=== PATIENT | female | born 1945 | race Caucasian/White ===

== ENCOUNTER 2018-04-13 15:08 | Inpatient (IN) | payer MEDICARE, BC ==
[~2018-04-13] VITALS: Ht 165.1 cm; Wt 67.4 kg
[2018-04-13 15:22] VITALS: BP 135/59; PULSE 100; RESP 17; TEMP 98.1; O2SAT 97
[2018-04-13 16:28] LABS: AMORPHOUS SEDIMENT, URINE RARE; BACTERIA, URINE MANY /hpf; BILIRUBIN, URINE NEG (NEG); BLOOD, URINE NEG (NEG); GLUCOSE,URINE NEG (NEG); HYALINE CAST, URINE 23 /lpf (RARE); KETONE, URINE TRACE mg/dL (NEG); MUCUS URINE FEW /lpf (OCC); NITRITE,URINE POS (NEG); PH, URINE 5.5 (5.0-8.5); URINE COLOR YELLOW (YELLW/STRAW); URINE LEUKOCYTE ESTERASE MOD (NEG)
[2018-04-13] MEDS ORDERED: INSU1INJ14 SQ (16:43)
[2018-04-13] MEDS ORDERED: TRIA37.5 (16:43)
[2018-04-13] MEDS ORDERED: IBUP200C PO (16:43)
[2018-04-13] MEDS ORDERED: GLIP5TAB8 PO (16:43)
[2018-04-13] MEDS ORDERED: ASPI81CH6 CHEW (16:43)
[2018-04-13] MEDS ORDERED: SYNT25TA PO (16:43)
[2018-04-13] MEDS ORDERED: PIPERACIL-TAZO 4.5 GM PREMIX 100 ML IV STA (17:17)
[2018-04-13] MEDS ORDERED: VANCOMYCIN INJ 1,000 MG in SODIUM CHLOR 0.9% 250 ML INJ 250 ML IV STA (17:17)
[2018-04-13 18:01] LABS: AUTOMATED NEUTROPHIL # 9.3 TH/MM3 (1.8-7.7); BASOPHIL # 0.1 TH/MM3 (0-0.2); BASOPHIL % 0.4 % (0.0-2.0); EOSINOPHIL # 0.4 TH/MM3 (0-0.4); EOSINOPHIL % 3.2 % (0.0-4.0); HEMATOCRIT 37.9 % (35.0-46.0); HEMOGLOBIN 12.8 GM/DL (11.6-15.3); LYMPH % 21.7 % (9.0-44.0); MEAN CORPUSCULAR HEMOGLOBIN 29.7 PG (27.0-34.0); MEAN CORPUSCULAR HGB CONC 33.8 % (32.0-36.0); MEAN PLATELET VOLUME 7.3 FL (7.0-11.0); MONO % 6.4 % (0.0-8.0); MONOCYTE # 0.9 TH/MM3 (0-0.9); NEUT % 68.3 % (16.0-70.0); PLATELET COUNT 443 TH/MM3 (150-450); RED BLOOD COUNT 4.31 MIL/MM3 (4.00-5.30); RED CELL DISTRIBUTION WIDTH 13.2 % (11.6-17.2); WHITE BLOOD COUNT 13.6 TH/MM3 (4.0-11.0)
[2018-04-13 18:24] LABS: ALBUMIN 3.4 GM/DL (3.4-5.0); ALT (GPT) 19 U/L (10-53); AST (GOT) 12 U/L (15-37); BICARBONATE 21.8 MEQ/L (21.0-32.0); BLOOD UREA NITROGEN 30 MG/DL (7-18); CALCIUM 9.1 MG/DL (8.5-10.1); CHLORIDE 100 MEQ/L (98-107); CREATININE 1.04 MG/DL (0.50-1.00); GLOMERULAR FILTRATION RATE 52 ML/MIN (>89); GLUCOSE,RANDOM 138 MG/DL (74-106); SODIUM (NA) 133 MEQ/L (136-145)
[2018-04-13 18:26] LABS: ALKALINE PHOSPHATASE 78 U/L (45-117); TOTAL BILIRUBIN ADULT 0.3 MG/DL (0.2-1.0); TOTAL PROTEIN 7.9 GM/DL (6.4-8.2)
--- NOTE | 2018-04-13 18:44 | PD ---
HPI Chief Complaint: Skin Problem Time Seen by Provider: 17:17 Travel History International Travel<30 days: No Contact w/Intl Traveler<30days: No Traveled to known affect area: No History of Present Illness HPI 72-year-old female patient with history of diabetes, presents to the ER today sent in by podiatry because she has draining ulcers on her right lower leg as well as cellulitis of both legs. She apparently has had worsening despite treatment and they state that they suspect that she has peripheral vascular disease as well. They have sent her in to be admitted with podiatry consult and to get Zosyn and vancomycin. In addition, they are suggesting that she will need ABIs and CTA for further evaluation as well as vascular consult. Patient states she has not been feeling well, pain in both legs, feeling more tired and having subjective fevers. Modifying Factors: None Associated Signs & Symptoms: Bilateral leg cellulitis, draining wounds on the right leg Risk Factors: Diabetic PFSH Past Medical History High Cholesterol: Yes Diabetes: Yes Patient Takes Glucophage: No Hypertension: Yes Thyroid Disease: Yes Tetanus Vaccination: Unknown ?: Not Ectopic : Yes Past Surgical History Tonsillectomy: Yes Other Surgery: Yes Social History Alcohol Use: No Tobacco Use: Yes Substance Use: No Allergies-Medications (Allergen,Severity, Reaction): Coded Allergies: Sulfa (Sulfonamide Antibiotics) (Verified Allergy, Severe, GI, 04/13/18) iodine (Verified Allergy, Severe, Anaphylaxis, 04/13/18) metformin (Verified Allergy, Severe, GI, 04/13/18) linagliptin (Verified Allergy, Intermediate, 04/13/18) Reported Meds & Prescriptions Reported Meds & Active Scripts Active Reported Triamterene-Hydrochlorothiazide 37.5-25 Mg Tab 1 Tab DAILY Ibuprofen 200 Mg Cap 200 Mg PO Q6H PRN Tresiba Flextouch Pen Inj (Insulin Degludec Inj) 300 unit/3 ML Pen 15 Units SQ HS Aspirin Low Dose (Aspirin) 81 Mg Chew 162 Mg CHEW DAILY Glipizide 5 Mg Tab 5 Mg PO BIDAC Take 30 minutes before a meal Synthroid (Levothyroxine Sodium) 25 Mcg Tab 25 Mcg PO DAILY Review of Systems Except as stated in HPI: all other systems reviewed are Neg Physical Exam Narrative GENERAL: Well-developed elderly female patient currently in moderate distress. SKIN: Focused skin assessment warm/dry. Patient has an erythematous rash with scaling and scabbing of the anterior chest wall as well as bilateral upper extremities and also on the lower extremities bilaterally, tender to palpation. There are 2 2 cm wounds in the medial calf and right lateral calf which are both draining pus. Very palpable pulses bilaterally. HEAD: Atraumatic. Normocephalic. EYES: Pupils equal and round. No scleral icterus. No injection or drainage. ENT: No nasal bleeding or discharge. Mucous membranes pink and moist. NECK: Trachea midline. No JVD. CARDIOVASCULAR: Regular rate and rhythm. No murmur appreciated. RESPIRATORY: No accessory muscle use. Clear to auscultation. Breath sounds equal bilaterally. GASTROINTESTINAL: Abdomen soft, non-tender, nondistended. Hepatic and splenic margins not palpable. MUSCULOSKELETAL: No obvious deformities. No clubbing. No cyanosis. Bilateral trace pitting edema of the legs, cool to palpation. NEUROLOGICAL: Awake and alert. No obvious cranial nerve deficits. Motor grossly within normal limits. Normal speech. PSYCHIATRIC: Appropriate mood and affect; insight and judgment normal. Data Data Last Documented VS Vital Signs Date Time Temp Pulse Resp B/P (MAP) Pulse Ox O2 Delivery O2 Flow Rate FiO2 04/13/18 15:22 98.1 100 17 135/59 (84) 97 Orders Orders Sepsis Workup Initiated (04/13/18 ) Complete Blood Count With Diff (04/13/18 15:29) Comprehensive Metabolic Panel (04/13/18 15:29) Urinalysis - C+S If Indicated (04/13/18 15:29) Lactic Acid Sepsis Protocol (04/13/18 15:29) Blood Culture (04/13/18 15:29) Iv Access Insert/Monitor (04/13/18 15:29) Oxygen Administration (04/13/18 15:29) Oximetry (04/13/18 15:29) Blood Glucose (04/13/18 15:29) Urine Culture (04/13/18 16:00) Piperacil-Tazo 4.5 Gm Premix (Zosyn 4.5 (04/13/18 17:17) Vancomycin Inj (Vancomycin Inj) (04/13/18 17:17) Arterial Segmt Dopp Ltd Neisha (04/13/18 ) Admit Order (Ed Use Only) (04/13/18 19:12) Labs Laboratory Tests Test 04/13/18 16:00 04/13/18 17:43 Urine Color YELLOW Urine Turbidity HAZY Urine pH 5.5 Urine Specific [place] 1.024 Urine Protein TRACE mg/dL Urine Glucose (UA) NEG mg/dL Urine Ketones TRACE mg/dL Urine Occult Blood NEG Urine Nitrite POS Urine Bilirubin NEG Urine Urobilinogen 2.0 MG/DL Urine Leukocyte Esterase MOD Urine RBC 3 /hpf Urine WBC 23 /hpf Urine Amorphous Sediment RARE Urine Bacteria MANY /hpf Urine Hyaline Casts 23 /lpf Urine Mucus FEW /lpf Microscopic Urinalysis Comment CULTURE INDICATED White Blood Count 13.6 TH/MM3 Red Blood Count 4.31 MIL/MM3 Hemoglobin 12.8 GM/DL Hematocrit 37.9 % Mean Corpuscular Volume 88.0 FL Mean Corpuscular Hemoglobin 29.7 PG Mean Corpuscular Hemoglobin Concent 33.8 % Red Cell Distribution Width 13.2 % Platelet Count 443 TH/MM3 Mean Platelet Volume 7.3 FL Neutrophils (%) (Auto) 68.3 % Lymphocytes (%) (Auto) 21.7 % Monocytes (%) (Auto) 6.4 % Eosinophils (%) (Auto) 3.2 % Basophils (%) (Auto) 0.4 % Neutrophils # (Auto) 9.3 TH/MM3 Lymphocytes # (Auto) 3.0 TH/MM3 Monocytes # (Auto) 0.9 TH/MM3 Eosinophils # (Auto) 0.4 TH/MM3 Basophils # (Auto) 0.1 TH/MM3 CBC Comment DIFF FINAL Differential Comment Blood Urea Nitrogen 30 MG/DL Creatinine 1.04 MG/DL Random Glucose 138 MG/DL Total Protein 7.9 GM/DL Albumin 3.4 GM/DL Calcium Level 9.1 MG/DL Alkaline Phosphatase 78 U/L Aspartate Amino Transf (AST/SGOT) 12 U/L Alanine Aminotransferase (ALT/SGPT) 19 U/L Total Bilirubin 0.3 MG/DL Sodium Level 133 MEQ/L Potassium Level 4.4 MEQ/L Chloride Level 100 MEQ/L Carbon Dioxide Level 21.8 MEQ/L Anion Gap 11 MEQ/L Estimat Glomerular Filtration Rate 52 ML/MIN Lactic Acid Level 1.9 mmol/L [facility] Medical Decision Making Medical Screen Exam Complete: Yes Emergency Medical Condition: Yes Medical Record Reviewed: Yes Interpretation(s) Laboratory Tests Test 04/13/18 16:00 04/13/18 17:43 Urine Turbidity HAZY (CLEAR) Urine Ketones TRACE mg/dL (NEG) Urine Nitrite POS (NEG) Urine Leukocyte Esterase MOD (NEG) Urine WBC 23 /hpf (0-5) Urine Bacteria MANY /hpf (NONE) Urine Mucus FEW /lpf (OCC) White Blood Count 13.6 TH/MM3 (4.0-11.0) Neutrophils # (Auto) 9.3 TH/MM3 (1.8-7.7) Blood Urea Nitrogen 30 MG/DL (7-18) Creatinine 1.04 MG/DL (0.50-1.00) Random Glucose 138 MG/DL (74-106) Aspartate Amino Transf (AST/SGOT) 12 U/L (15-37) Sodium Level 133 MEQ/L (136-145) Estimat Glomerular Filtration Rate 52 ML/MIN (>89) Differential Diagnosis Sepsis versus cellulitis versus electrolyte abnormalities Narrative Course At this point, patient is initiated on IV antibiotics after cultures are drawn. She also has a significant UTI which the antibiotic should also cover. My plan would be to admit her as requested by podiatry with podiatry consult. She has been ordered ABIs as well. Case is discussed with Dr. Chao for admission. Diagnosis Primary Impression: Bilateral lower leg cellulitis Additional Impressions: Sepsis UTI (urinary tract infection) Admitting Information Admitting Physician Requests: it Rui Dewitt MD Apr 13, 2018 18:44
[2018-04-13 19:19] VITALS: BP 119/66; PULSE 95; RESP 16; O2SAT 98
[2018-04-13] MEDS ORDERED: NALOXONE HCL 0.4 MG/ML AMP IV PUSH PRN (21:15)
[2018-04-13] MEDS ORDERED: ACETAMINOPHEN 325 MG TAB PO PRN (21:15)
[2018-04-13] MEDS ORDERED: GLUCAGON 1 MG/ML VIAL OTHER PRN (21:15)
[2018-04-13] MEDS ORDERED: MAGNESIUM HYDROXIDE SUSP 30 ML CUP PO PRN (21:15)
[2018-04-13] MEDS ORDERED: Vancomycin Consult Pharmacy 1 EA OTHER SCH (21:15)
[2018-04-13] MEDS ORDERED: LACTULOSE SYRUP 20 GM/30 ML CUP PO PRN (21:15)
[2018-04-13] MEDS ORDERED: BISACODYL 10 MG SUPP RECTAL PRN (21:15)
[2018-04-13] MEDS ORDERED: SODIUM CHLORIDE 0.9% FLUSH 10 ML FLUSH IV FLUSH PRN (21:15)
[2018-04-13] MEDS ORDERED: DEXTROSE 50% IN WATER 50 ML VIAL(D50) IV PUSH PRN (21:15)
[2018-04-13] MEDS ORDERED: ONDANSETRON HCL 4 MG/2 ML VIAL IVP PRN (21:15)
[2018-04-13] MEDS ORDERED: SENNOSIDES 8.6 MG TAB PO PRN (21:15)
--- NOTE | 2018-04-13 21:18 | HHI.HP ---
HPI Service [facility] Primary Care Physician No Primary Care Physician Admission Diagnosis Sepsis/bilateral leg cellulitis/UTI Diagnoses: Travel History International Travel<30 Days: No Contact w/Intl Traveler <30 Da: No Traveled to Known Affected Are: No History of Present Illness 72-year-old female with past medical history significant for diabetes mellitus, hypertension, hyperlipidemia, coronary artery disease and peripheral vascular disease presents the emergency department for evaluation of bilateral lower extremity wounds. 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 The patient states she has had these bilateral lower extremity ulcerations on her shins and feet since November. She was seen in urgent care center where she was prescribed 10 days of doxycycline on 01/31/18. She reports no improvement in her symptoms despite compliance with the medication. She reports she has had subjective fevers and chills since November. The patient is a poor historian and states she has "blockages" in her bilateral lower extremities although she cannot tell me where or what testing she had done. She denies any chest pain or shortness of breath. No abdominal pain. No nausea/vomiting/diarrhea. No lateralizing signs/symptoms. Review of Systems Except as stated in HPI: all other systems reviewed are Neg Past Family Social History Past Medical History diabetes mellitus, hypertension, hyperlipidemia, coronary artery disease and peripheral vascular disease Past Surgical History Ectopic Brain aneurysm clipping Ovarian cyst removal Tonsillectomy Reported Medications Reported Meds & Active Scripts Active Reported Triamterene-Hydrochlorothiazide 37.5-25 Mg Tab 1 Tab DAILY Ibuprofen 200 Mg Cap 200 Mg PO Q6H PRN Tresiba Flextouch Pen Inj (Insulin Degludec Inj) 300 unit/3 ML Pen 15 Units SQ HS Aspirin Low Dose (Aspirin) 81 Mg Chew 162 Mg CHEW DAILY Glipizide 5 Mg Tab 5 Mg PO BIDAC Take 30 minutes before a meal Synthroid (Levothyroxine Sodium) 25 Mcg Tab 25 Mcg PO DAILY Allergies: Coded Allergies: Sulfa (Sulfonamide Antibiotics) (Verified Allergy, Severe, GI, 04/13/18) iodine (Verified Allergy, Severe, Anaphylaxis, 04/13/18) metformin (Verified Allergy, Severe, GI, 04/13/18) linagliptin (Verified Allergy, Intermediate, 04/13/18) Family History Father with diabetes mellitus. Mother with CHF. Social History Smokes 1 pack per day 60 years. Denies alcohol and illicit drugs. Physical Exam Vital Signs Vital Signs Date Time Temp Pulse Resp B/P (MAP) Pulse Ox O2 Delivery O2 Flow Rate FiO2 04/13/18 19:19 95 16 119/66 (83) 98 Room Air 04/13/18 15:22 98.1 100 17 135/59 (84) 97 Physical Exam GENERAL: female sitting up in bed. SKIN: Bilateral lower extremity wounds draining foul-smelling, purulent material. Lower extremities with erythema and edema. HEAD: Atraumatic. Normocephalic. No temporal or scalp tenderness. EYES: Pupils equal round and reactive. Extraocular motions intact. No scleral icterus. No injection or drainage. ENT: Nose without bleeding, purulent drainage or septal hematoma. Throat without erythema, tonsillar hypertrophy or exudate. Uvula midline. Airway patent. NECK: Trachea midline. No JVD or lymphadenopathy. Supple, nontender, no meningeal signs. CARDIOVASCULAR: Regular rate and rhythm without murmurs, gallops, or rubs. RESPIRATORY: Clear to auscultation. Breath sounds equal bilaterally. No wheezes , rales, or rhonchi. GASTROINTESTINAL: Abdomen soft, non-tender, nondistended. No hepato-splenomegaly , or palpable masses. No guarding. MUSCULOSKELETAL: Bilateral lower extremity edema. NEUROLOGICAL: Awake and alert. Cranial nerves II through XII intact. Motor and sensory grossly within normal limits. Normal speech. Laboratory Laboratory Tests Test 04/13/18 16:00 04/13/18 17:43 Urine Color YELLOW Urine Turbidity HAZY Urine pH 5.5 Urine Specific [place] 1.024 Urine Protein TRACE Urine Glucose (UA) NEG Urine Ketones TRACE Urine Occult Blood NEG Urine Nitrite POS Urine Bilirubin NEG Urine Urobilinogen 2.0 Urine Leukocyte Esterase MOD Urine RBC 3 Urine WBC 23 Urine Amorphous Sediment RARE Urine Bacteria MANY Urine Hyaline Casts 23 Urine Mucus FEW Microscopic Urinalysis Comment CULTURE INDICATED White Blood Count 13.6 Red Blood Count 4.31 Hemoglobin 12.8 Hematocrit 37.9 Mean Corpuscular Volume 88.0 Mean Corpuscular Hemoglobin 29.7 Mean Corpuscular Hemoglobin Concent 33.8 Red Cell Distribution Width 13.2 Platelet Count 443 Mean Platelet Volume 7.3 Neutrophils (%) (Auto) 68.3 Lymphocytes (%) (Auto) 21.7 Monocytes (%) (Auto) 6.4 Eosinophils (%) (Auto) 3.2 Basophils (%) (Auto) 0.4 Neutrophils # (Auto) 9.3 Lymphocytes # (Auto) 3.0 Monocytes # (Auto) 0.9 Eosinophils # (Auto) 0.4 Basophils # (Auto) 0.1 CBC Comment DIFF FINAL Differential Comment Blood Urea Nitrogen 30 Creatinine 1.04 Random Glucose 138 Total Protein 7.9 Albumin 3.4 Calcium Level 9.1 Alkaline Phosphatase 78 Aspartate Amino Transf (AST/SGOT) 12 Alanine Aminotransferase (ALT/SGPT) 19 Total Bilirubin 0.3 Sodium Level 133 Potassium Level 4.4 Chloride Level 100 Carbon Dioxide Level 21.8 Anion Gap 11 Estimat Glomerular Filtration Rate 52 Lactic Acid Level 1.9 Date/Time Source Procedure Growth Status 04/13/18 17:45 Blood Peripheral Aerobic Blood Culture Pending Received 04/13/18 17:45 Blood Peripheral Anaerobic Blood Culture Pending Received 04/13/18 16:00 Urine Random Urine Urine Culture Pending Worksheet Result Diagram: 04/13/18 1743 04/13/18 1743 Caprini VTE Risk Assessment Caprini VTE Risk Assessment: Mod/High Risk (score >= 2) Caprini Risk Assessment Model Point Value = 1 Point Value = 2 Point Value = 3 Point Value = 5 Age 41-60 Minor surgery BMI > 25 kg/m2 Swollen legs Varicose veins or History of unexplained or recurrent spontaneous Oral contraceptives or hormone replacement Sepsis (< 1 month) Serious lung disease, including pneumonia (< 1 month) Abnormal pulmonary function Acute myocardial infarction Congestive heart failure (< 1 month) History of inflammatory bowel disease Medical patient at bed rest Age 61-74 Arthroscopic surgery Major open surgery (> 45 min) Laparoscopic surgery (> 45 min) Malignancy Confined to bed (> 72 hours) Immobilizing plaster cast Central venous access Age >= 75 History of VTE Family history of VTE Factor V Leiden Prothrombin [id number] Lupus anticoagulant Anticardiolipin antibodies Elevated serum homocysteine Heparin-induced thrombocytopenia Other congenital or acquired thrombophilia Stroke (< 1 month) Elective arthroplasty Hip, pelvis, or leg fracture Acute spinal cord injury (< 1 month) Prophylaxis Regimen Total Risk Factor Score Risk Level Prophylaxis Regimen 0-1 Low Early ambulation 2 Moderate Order ONE of the following: *Sequential Compression Device (SCD) *Heparin 5000 units SQ BID 3-4 Higher Order ONE of the following medications: *Heparin 5000 units SQ TID *Enoxaparin/Lovenox 40 mg SQ daily (WT < 150 kg, CrCl > 30 mL/min) *Enoxaparin/Lovenox 30 mg SQ daily (WT < 150 kg, CrCl > 10-29 mL/min) *Enoxaparin/Lovenox 30 mg SQ BID (WT < 150 kg, CrCl > 30 mL/min) AND/OR *Sequential Compression Device (SCD) 5 or more Highest Order ONE of the following medications: *Heparin 5000 units SQ TID (Preferred with Epidurals) *Enoxaparin/Lovenox 40 mg SQ daily (WT < 150 kg, CrCl > 30 mL/min) *Enoxaparin/Lovenox 30 mg SQ daily (WT < 150 kg, CrCl > 10-29 mL/min) *Enoxaparin/Lovenox 30 mg SQ BID (WT < 150 kg, CrCl > 30 mL/min) AND *Sequential Compression Device (SCD) Assessment and Plan Assessment and Plan Assessment/plan: 1. Bilateral lower extremity wounds/cellulitis/peripheral vascular disease Vancomycin and Rejin Podiatry consulted, appreciate assistance Vascular surgery consulted, appreciate assistance ABIs pending Blood, wound cultures pending Patient would benefit from CTA with runoff however has iodine allergy 2. Diabetes mellitus Sliding-scale insulin Monitor blood glucose Holding long-acting insulin as patient n.p.o. 3. Hypertension/hyperlipidemia/hypothyroidism Continue home medications FEN N.p.o. NS at 80 cc/hour Electrolytes: Monitor and replete as needed Holding pharmacologic anticoagulation for possible operative intervention Physician Certification 2 Midnight Certification Type: Admission for Inpatient Services Order for Inpatient Services The services are ordered in accordance with Medicare regulations or non- Medicare payer requirements, as applicable. In the case of services not specified as inpatient-only, they are appropriately provided as inpatient services in accordance with the 2-midnight benchmark. Estimated LOS (days): 2 2 days is the estimated time the patient will need to remain in the hospital, assuming treatment plan goals are met and no additional complications. Post-Hospital Plan: Not yet determined Kirsten Chao MD Apr 13, 2018 21:18
[2018-04-13 21:32] VITALS: BP 118/64
[2018-04-13 22:03] VITALS: BP 102/66; PULSE 106; RESP 18; TEMP 98; O2SAT 99
[2018-04-13] MEDS: SODIUM CHLOR 0.9% 1000 ML INJ 1,000 ML IV SCH (23:36)
[2018-04-13] MEDS: PIPERACIL-TAZO 3.375 GM PREMIX 50 ML IV SCH (23:36)
[2018-04-14 01:02] VITALS: BP 92/55; PULSE 93; RESP 18; TEMP 98.5; O2SAT 96
[2018-04-14] MEDS: MORPHINE SULFATE 4 MG/ML INJ IV PUSH PRN ×3 (02:15→10:16)
[2018-04-14] MEDS ORDERED: VANCOMYCIN INJ 1,000 MG in SODIUM CHLOR 0.9% 250 ML INJ 250 ML IV SCH (05:00)
[2018-04-14 05:14] VITALS: BP 132/80; PULSE 90; RESP 18; TEMP 97.6; O2SAT 99
[2018-04-14] MEDS: PIPERACIL-TAZO 3.375 GM PREMIX 50 ML IV SCH ×3 (05:40→17:32)
[2018-04-14] MEDS: LEVOTHYROXINE SODIUM 25 MCG TAB PO SCH (05:40)
[2018-04-14 07:20] LABS: AUTOMATED NEUTROPHIL # 8.9 TH/MM3 (1.8-7.7); BASOPHIL # 0.1 TH/MM3 (0-0.2); BASOPHIL % 0.6 % (0.0-2.0); EOSINOPHIL # 0.2 TH/MM3 (0-0.4); HEMATOCRIT 38.9 % (35.0-46.0); LYMPH % 17.8 % (9.0-44.0); LYMPHOCYTE # 2.1 TH/MM3 (1.0-4.8); MEAN CELL VOLUME 87.8 FL (80.0-100.0); MEAN CORPUSCULAR HEMOGLOBIN 29.4 PG (27.0-34.0); MEAN CORPUSCULAR HGB CONC 33.4 % (32.0-36.0); MEAN PLATELET VOLUME 7.5 FL (7.0-11.0); MONO % 6.2 % (0.0-8.0); MONOCYTE # 0.7 TH/MM3 (0-0.9); NEUT % 73.4 % (16.0-70.0); PLATELET COUNT 432 TH/MM3 (150-450); RED BLOOD COUNT 4.43 MIL/MM3 (4.00-5.30); RED CELL DISTRIBUTION WIDTH 13.4 % (11.6-17.2); WHITE BLOOD COUNT 12.1 TH/MM3 (4.0-11.0)
[2018-04-14 07:46] LABS: BICARBONATE 21.7 MEQ/L (21.0-32.0); CALCIUM 8.8 MG/DL (8.5-10.1); CREATININE 0.97 MG/DL (0.50-1.00)
[2018-04-14 08:00] VITALS: BP 109/71; PULSE 93; RESP 18; TEMP 97.9; O2SAT 97
[2018-04-14] MEDS: INSULIN ASPART SUPPLEMENTAL SCALE SQ SCH ×4 (08:00→22:17)
[2018-04-14] MEDS: SODIUM CHLORIDE 0.9% FLUSH 10 ML FLUSH IV FLUSH SCH ×2 (09:00→23:00)
[2018-04-14] MEDS: DOCUSATE SODIUM 50 MG/SENNA 8.6 MG TAB PO SCH ×2 (09:00→22:14)
--- NOTE | 2018-04-14 09:27 | HHI.PR ---
Subjective Remarks in no acute distress. denies pain. no fever. d/w the RN. Objective Vitals Vital Signs Date Time Temp Pulse Resp B/P (MAP) Pulse Ox O2 Delivery O2 Flow Rate FiO2 04/14/18 05:14 97.6 90 18 132/80 (97) 99 04/14/18 01:02 98.5 93 18 92/55 (67) 96 04/13/18 22:03 98.0 106 18 102/66 (78) 99 04/13/18 21:32 90 16 118/64 (82) 97 04/13/18 19:19 95 16 119/66 (83) 98 Room Air 04/13/18 15:22 98.1 100 17 135/59 (84) 97 I/O 04/13/18 04/13/18 04/13/18 04/14/18 04/14/18 04/14/18 07:00 15:00 23:00 07:00 15:00 23:00 Intake Total 250 ml Output Total 1 ml Balance 250 ml -1 ml Intake IV Total 250 ml Output Urine Total 1 ml Result Diagram: 04/14/18 0653 04/14/18 0655 Objective Remarks GENERAL: This is a well-nourished, well-developed patient, in no apparent distress. CARDIOVASCULAR: Regular rate and regular rhythm without murmurs, gallops, or rubs. RESPIRATORY: Clear to auscultation. Breath sounds equal bilaterally. No wheezes , rales, or rhonchi. GASTROINTESTINAL: Abdomen soft, non-tender, nondistended. Normal, active bowel sounds MUSCULOSKELETAL: Extremities with open wound on right leg NEURO: Alert & Oriented x4 to person, place, time, situation. Moves all ext x4 Medications and IVs Inpatient Medications Acetaminophen (Tylenol) 650 mg Q4H PRN PO TEMP > 100.4; Start 04/13/18 at 21:15 Bisacodyl (Dulcolax Supp) 10 mg DAILY PRN RECTAL SEVERE CONSITIPATION/ IF NPO ; Start 04/13/18 at 21:15 Dextrose (D50w (Vial) Inj) 50 ml UNSCH PRN IV PUSH HYPOGLYCEMIA-SEE COMMENTS; Start 04/13/18 at 21:15 Glucagon (Glucagon Inj) 1 mg UNSCH PRN OTHER HYPOGLYCEMIA-SEE COMMENTS; Start 04/13/18 at 21:15 Insulin Aspart (NovoLOG SUPPLEMENTAL SCALE) 1 ACHS SLIDING SCALE SQ ; Start 04/14/18 at 08:00 Lactulose (Lactulose Liq) 30 ml DAILY PRN PO SEVERE CONSITIPATION/ IF PO; Start 04/13/18 at 21:15 Levothyroxine Sodium (Synthroid) 25 mcg DAILY@0700 PO Last administered on at 05:40; Start 04/14/18 at 07:00 Magnesium Hydroxide (Milk Of Magnesia Liq) 30 ml Q12H PRN PO Mild constipation ; Start 04/13/18 at 21:15 Morphine Sulfate (Morphine Inj) 2 mg Q3H PRN IV PUSH pain> 5 Last administered on 04/14/18at 06:37; Start 04/14/18 at 02:15 Naloxone HCl (Narcan Inj) 0.4 mg UNSCH PRN IV PUSH SEE LABEL COMMENTS; Start at 21:15 Ondansetron HCl (Zofran Inj) 4 mg Q6H PRN IVP NAUSEA OR VOMITING; Start at 21:15 Pharmacy Profile Note 0 ml @ 0 mls/hr UNSCH OTHER ; Start 04/13/18 at 21:15 Piperacillin Sod/ Tazobactam Sod 50 ml @ 100 mls/hr Q6H IV Last administered on 04/14/18at 05:40; Start 04/14/18 at 00:00 Senna/Docusate Sodium (Zunilda-Colace) 1 tab BID PO ; Start 04/14/18 at 09:00 Sennosides (Senokot) 17.2 mg Q12H PRN PO Moderate constipation; Start 04/13/18 at 21:15 Sodium Chloride (NS Flush) 2 ml BID IV FLUSH ; Start 04/14/18 at 09:00 Triamterene/HCTZ (Maxzide 37.5-25 Mg) 1 tab DAILY PO ; Start 04/14/18 at 09:00 Vancomycin HCl 1000 mg/Sodium Chloride 250 ml @ 250 mls/hr ONCE STAT IV Last administered on 04/13/18at 18:19; Start 04/13/18 at 17:17; Stop 04/13/18 at 18:16; Status DC A/P Assessment and Plan A/P 1. Bilateral lower extremity wounds/cellulitis/peripheral vascular disease Vancomycin and Zosyn Podiatry consulted, appreciate assistance Vascular surgery consulted, appreciate assistance ABIs pending Blood, wound cultures pending Patient would benefit from CTA with runoff however has iodine allergy 2. Diabetes mellitus Sliding-scale insulin Monitor blood glucose Holding long-acting insulin as patient n.p.o. 3. Hypertension/hyperlipidemia/hypothyroidism Continue home medications Discharge Planning w/u in progress. Chioma Coker MD Apr 14, 2018 09:27
[2018-04-14] MEDS: SODIUM CHLOR 0.9% 1000 ML INJ 1,000 ML IV SCH ×3 (09:33→22:03)
[2018-04-14] MEDS: TRIAMTERENE/HCTZ 37.5 MG/25 MG TAB PO SCH (10:12)
[2018-04-14] MEDS ORDERED: ACETAMINOPHEN/HYDROcodone 325 MG/5 MG TAB PO PRN (10:15)
[2018-04-14 12:00] VITALS: BP 121/58; PULSE 93; RESP 18; TEMP 98.3; O2SAT 95
--- NOTE | 2018-04-14 12:11 | RADRPT ---
EXAM DATE: 04/14/2018 12:05 PM EDT AGE/SEX: 72 years / Female INDICATIONS: Bilateral lower extremity wounds CLINICAL DATA: This is the patient's initial encounter. Patient reports that signs and symptoms have been present for 4 - 6 months and indicates a pain score of 10/10. MEDICAL/SURGICAL HISTORY: . Diabetes mellitus, hypertension, hyperlipidemia, CAD, PVD, bilatera l lower extremity wounds . Ectopic , brain aneurysm clip, ovarian cyst removal, tonsillecto my COMPARISON: No prior exams available for comparison. TECHNIQUE: Four-cuff ankle and brachial pressures were obtained. Pulse cuff waveform tracings of the ankles were recorded, and ankle-brachial indices were calculated. PRESSURES (mmHg): Brachial (arm) : RIGHT: 112, LEFT: IV SITE Ankle : RIGHT: 10, LEFT: 8 Ankle : RIGHT: 0.09, LEFT: 0.07 TBI : RIGHT: 0.00, LEFT: 0.00 PULSED CUFF WAVEFORMS: Absent waveforms bilaterally. CONCLUSION: Critical PAD bilaterally. Electronically signed by: Serg Bass MD 04/14/2018 12:09 PM EDT
[2018-04-14] MEDS: ACETAMINOPHEN/HYDROcodone 325 MG/5 MG TAB PO PRN ×2 (12:55→22:14)
[2018-04-14 16:00] VITALS: BP 158/67; PULSE 86; RESP 18; TEMP 97.7; O2SAT 96
--- NOTE | 2018-04-14 16:21 | PD.CONS ---
History of Present Illness Service Foot and ankle surgery/podiatry Consult Requested By Reason for Consult Bilateral lower extremity ulcerations Primary Care Physician No Primary Care Physician Diagnoses: History of Present Illness Podiatry consulted for this 72-year-old female with past medical history significant for diabetes, hypertension, hyperlipidemia, coronary artery disease , and peripheral vascular disease for bilateral lower extremity wounds. Patient was seen in office yesterday and was sent over for evaluation of peripheral arterial disease as well as for IV antibiotics. Patient reports she has had bilateral lower extremity ulcerations since November. She has failed oral antibiotic treatments her most recent treatment was 01/31/2018. Patient states she reports fevers and chills since November. She denies any nausea vomiting fevers or chills as of today. Review of Systems Constitutional: DENIES: Fatigue, Fever Respiratory: DENIES: Cough, Shortness of breath Cardiovascular: COMPLAINS OF: Lower Extremity Edema, DENIES: Chest pain, Palpitations Gastrointestinal: DENIES: Nausea, Vomiting Psychiatric: DENIES: Anxiety, Confusion Past Family Social History Allergies: Coded Allergies: Sulfa (Sulfonamide Antibiotics) (Verified Allergy, Severe, GI, 04/13/18) iodine (Verified Allergy, Severe, Anaphylaxis, 04/13/18) metformin (Verified Allergy, Severe, GI, 04/13/18) linagliptin (Verified Allergy, Intermediate, 04/13/18) Past Medical History As per HPI Active Ordered Medications Current Medications Medications (Trade) Dose Ordered Sig/Carrie Route Start Time Stop Time Status Last Admin Piperacillin Sod/ Tazobactam Sod 50 ml @ 100 mls/hr Q6H IV 04/14/18 00:00 04/14/18 12:50 Pharmacy Profile Note 0 ml @ 0 mls/hr UNSCH OTHER 04/13/18 21:15 Sodium Chloride 1,000 ml @ 80 mls/hr [id number] IV 04/13/18 21:03 04/13/18 23:36 (NS Flush) 2 ml UNSCH PRN IV FLUSH 04/13/18 21:15 (NS Flush) 2 ml BID IV FLUSH 04/14/18 09:00 (Tylenol) 650 mg Q4H PRN PO 04/13/18 21:15 (Zofran Inj) 4 mg Q6H PRN IVP 04/13/18 21:15 (Narcan Inj) 0.4 mg UNSCH PRN IV PUSH 04/13/18 21:15 (Zunilda-Colace) 1 tab BID PO 04/14/18 09:00 (Milk Of Magnesia Liq) 30 ml Q12H PRN PO 04/13/18 21:15 (Senokot) 17.2 mg Q12H PRN PO 04/13/18 21:15 (Dulcolax Supp) 10 mg DAILY PRN RECTAL 04/13/18 21:15 (Lactulose Liq) 30 ml DAILY PRN PO 04/13/18 21:15 (Synthroid) 25 mcg DAILY@0700 PO 04/14/18 07:00 04/14/18 05:40 (Maxzide 37.5-25 Mg) 1 tab DAILY PO 04/14/18 09:00 04/14/18 10:12 (D50w (Vial) Inj) 50 ml UNSCH PRN IV PUSH 04/13/18 21:15 (Glucagon Inj) 1 mg UNSCH PRN OTHER 04/13/18 21:15 (NovoLOG SUPPLEMENTAL SCALE) 1 ACHS SLIDING SCALE SQ 04/14/18 08:00 (Morphine Inj) 2 mg Q3H PRN IV PUSH 04/14/18 02:15 04/14/18 10:16 ([place] 5-325 Mg) 1 tab Q6H PRN PO 04/14/18 10:15 ([place] 5-325 Mg) 2 tab Q6H PRN PO 04/14/18 10:15 04/14/18 12:55 Vancomycin HCl 1000 mg/Sodium Chloride 250 ml @ 250 mls/hr Q24H IV 04/14/18 18:00 [place] [place] [facility] Info) SPECIFIC LAB TO BE DRAWN:VANCO TROUGH DATE TO BE DR... ONCE ONCE .XX 04/16/18 17:45 04/16/18 17:46 (Deltasone) 50 mg Q6H PO 04/14/18 21:00 04/15/18 09:01 (Benadryl) 50 mg ONCE ONCE PO 04/15/18 09:00 04/15/18 09:01 Physical Exam Vital Signs Vital Signs Date Time Temp Pulse Resp B/P (MAP) Pulse Ox O2 Delivery O2 Flow Rate FiO2 04/14/18 12:00 98.3 93 18 121/58 (79) 95 04/14/18 10:21 18 04/14/18 08:00 97.9 93 18 109/71 (84) 97 04/14/18 05:14 97.6 90 18 132/80 (97) 99 04/14/18 01:02 98.5 93 18 92/55 (67) 96 04/13/18 22:03 98.0 106 18 102/66 (78) 99 04/13/18 21:32 90 16 118/64 (82) 97 04/13/18 19:19 95 16 119/66 (83) 98 Room Air Physical Exam GENERAL: This is a well-nourished, well-developed patient, in no apparent distress. SKIN: Multiple excoriations noted to all limbs HEAD: Atraumatic. EYES: Pupils equal round and reactive. ENT: Airway patent. NECK: Trachea midline. RESPIRATORY: Nonlabored breathing. MUSCULOSKELETAL:. Negative Homans sign bilaterally. NEUROLOGICAL: Awake and alert. Normal speech. Lower extremity physical exam: Vascular: Dorsalis pedis nonpalpable, posterior tibial nonpalpable. Capillary refill time within normal limits to digits 5 bilateral foot. Edema present bilateral lower extremity Neuro: Gross sensation intact to bilateral lower extremity. Pinpoint sensation intact. No hyperalgesia noted to bilateral lower extremity Dermatology: Normal temperature and turgor to bilateral lower extremity. Ulcerations noted to right medial and lateral leg with fibrotic necrotic base, probing to bone, seropurulent drainage noted, associated erythema and edema. Left hallux ulceration with completely eschar, necrotic base, no drainage noted , probe to bone noted, with associated erythema and edema. Musculoskeletal: Tender to palpation to bilateral lower extremities at ulceration site Laboratory Laboratory Tests Test 04/13/18 17:43 04/14/18 06:53 04/14/18 06:55 White Blood Count 13.6 12.1 Red Blood Count 4.31 4.43 Hemoglobin 12.8 13.0 Hematocrit 37.9 38.9 Mean Corpuscular Volume 88.0 87.8 Mean Corpuscular Hemoglobin 29.7 29.4 Mean Corpuscular Hemoglobin Concent 33.8 33.4 Red Cell Distribution Width 13.2 13.4 Platelet Count 443 432 Mean Platelet Volume 7.3 7.5 Neutrophils (%) (Auto) 68.3 73.4 Lymphocytes (%) (Auto) 21.7 17.8 Monocytes (%) (Auto) 6.4 6.2 Eosinophils (%) (Auto) 3.2 2.0 Basophils (%) (Auto) 0.4 0.6 Neutrophils # (Auto) 9.3 8.9 Lymphocytes # (Auto) 3.0 2.1 Monocytes # (Auto) 0.9 0.7 Eosinophils # (Auto) 0.4 0.2 Basophils # (Auto) 0.1 0.1 CBC Comment DIFF FINAL DIFF FINAL Differential Comment Blood Urea Nitrogen 30 31 Creatinine 1.04 0.97 Random Glucose 138 171 Total Protein 7.9 Albumin 3.4 Calcium Level 9.1 8.8 Alkaline Phosphatase 78 Aspartate Amino Transf (AST/SGOT) 12 Alanine Aminotransferase (ALT/SGPT) 19 Total Bilirubin 0.3 Sodium Level 133 136 Potassium Level 4.4 3.9 Chloride Level 100 102 Carbon Dioxide Level 21.8 21.7 Anion Gap 11 12 Estimat Glomerular Filtration Rate 52 56 Lactic Acid Level 1.9 Date/Time Source Procedure Growth Status 04/13/18 17:45 Blood Peripheral Aerobic Blood Culture - Preliminary NO GROWTH IN 1 DAY Resulted 04/13/18 17:45 Blood Peripheral Anaerobic Blood Culture - Preliminary NO GROWTH IN 1 DAY Resulted 04/13/18 16:00 Urine Random Urine Urine Culture - Preliminary Gram Negative Michael Resulted Result Diagram: 04/14/18 0653 04/14/18 0655 Imaging Last Impressions Extremity Arterial Study 04/13/18 0000 Signed Impressions: CONCLUSION: Critical PAD bilaterally. Assessment and Plan Assessment and Plan 72-year-old female with bilateral lower extremity ulcerations; possible osteomyelitis to left hallux, right leg Patient examined and evaluated with all questions answered Vascular surgery on board and CTA scheduled for tomorrow Patient will need vascular intervention before anything can be done as far as debriding wounds or possible left hallux amputation CT of right leg and left foot to rule out osteomyelitis as patient is unable to obtain MRI secondary to dye allergy Will place wound care orders Continue with conservative care at this time Brittnee Osorio DPM Apr 14, 2018 16:21
[2018-04-14] MEDS: VANCOMYCIN INJ 1,000 MG in SODIUM CHLOR 0.9% 250 ML INJ 250 ML IV SCH (18:10)
[2018-04-14 20:00] VITALS: BP 95/59; PULSE 86; RESP 18; TEMP 97.4; O2SAT 94
[2018-04-14] MEDS: predniSONE 50 MG TAB PO SCH (22:15)
[2018-04-15] VITALS: BP 131/58; PULSE 86; RESP 18; TEMP 97.2; O2SAT 97
[2018-04-15] MEDS: PIPERACIL-TAZO 3.375 GM PREMIX 50 ML IV SCH ×4 (00:06→18:26)
[2018-04-15 04:00] VITALS: BP 156/80; PULSE 88; RESP 18; TEMP 97.5; O2SAT 97
[2018-04-15] MEDS: predniSONE 50 MG TAB PO SCH ×2 (05:36→09:34)
[2018-04-15] MEDS: LEVOTHYROXINE SODIUM 25 MCG TAB PO SCH (05:36)
[2018-04-15] MEDS: INSULIN ASPART SUPPLEMENTAL SCALE SQ SCH ×4 (08:00→21:35)
[2018-04-15 08:32] VITALS: BP 139/59; PULSE 84; RESP 18; TEMP 97.2; O2SAT 95
[2018-04-15] MEDS ORDERED: diphenhydrAMINE HCL 50 MG CAP PO ONE (09:00)
[2018-04-15] MEDS: SODIUM CHLORIDE 0.9% FLUSH 10 ML FLUSH IV FLUSH SCH ×2 (09:00→21:35)
[2018-04-15] MEDS: DOCUSATE SODIUM 50 MG/SENNA 8.6 MG TAB PO SCH ×2 (09:33→21:35)
[2018-04-15] MEDS: TRIAMTERENE/HCTZ 37.5 MG/25 MG TAB PO SCH (09:34)
[2018-04-15] MEDS: COLLAGENASE OINT 30 GM TUBE TOPICAL SCH (09:35)
[2018-04-15] MEDS: SODIUM CHLOR 0.9% 1000 ML INJ 1,000 ML IV SCH ×2 (09:35→23:03)
--- NOTE | 2018-04-15 09:56 | HHI.PR ---
Subjective Remarks in no acute distress. pain is controlled. no fever. d/w the RN and no acute issues over night. Objective Vitals Vital Signs Date Time Temp Pulse Resp B/P (MAP) Pulse Ox O2 Delivery O2 Flow Rate FiO2 04/15/18 08:32 97.2 84 18 139/59 (85) 95 04/15/18 04:00 97.5 88 18 156/80 (105) 97 04/15/18 00:00 97.2 86 18 131/58 (82) 97 04/14/18 20:00 97.4 86 18 95/59 (71) 94 04/14/18 16:00 97.7 86 18 158/67 (97) 96 04/14/18 12:00 98.3 93 18 121/58 (79) 95 04/14/18 10:21 18 I/O 04/14/18 04/14/18 04/14/18 04/15/18 04/15/18 04/15/18 07:00 15:00 23:00 07:00 15:00 23:00 Intake Total 1069 ml Output Total 1 ml Balance -1 ml 1069 ml Intake IV Total 1069 ml Output Urine Total 1 ml # Voids 3 2 Result Diagram: 04/14/18 0653 04/14/18 0655 Imaging Last Impressions Extremity Arterial Study 04/13/18 0000 Signed Impressions: CONCLUSION: Critical PAD bilaterally. Objective Remarks GENERAL: This is a well-nourished, well-developed patient, in no apparent distress. CARDIOVASCULAR: Regular rate and regular rhythm without murmurs, gallops, or rubs. RESPIRATORY: Clear to auscultation. Breath sounds equal bilaterally. No wheezes , rales, or rhonchi. GASTROINTESTINAL: Abdomen soft, non-tender, nondistended. Normal, active bowel sounds MUSCULOSKELETAL: Extremities with open wound on right leg NEURO: Alert & Oriented x4 to person, place, time, situation. Moves all ext x4 Medications and IVs Inpatient Medications Acetaminophen (Tylenol) 650 mg Q4H PRN PO TEMP > 100.4; Start 04/13/18 at 21:15 Acetaminophen/ Hydrocodone Bitart ([place] 5-325 Mg) 2 tab Q6H PRN PO PAIN 8-10 Last administered on 04/14/18at 22:14; Start 04/14/18 at 10:15 Bisacodyl (Dulcolax Supp) 10 mg DAILY PRN RECTAL SEVERE CONSITIPATION/ IF NPO ; Start 04/13/18 at 21:15 Collagenase (Santyl Oint) 1 applic DAILY TOPICAL Last administered on 04/15/18at 09:35; Start 04/15/18 at 09:00 Dextrose (D50w (Vial) Inj) 50 ml UNSCH PRN IV PUSH HYPOGLYCEMIA-SEE COMMENTS; Start 04/13/18 at 21:15 Diphenhydramine HCl (Benadryl) 50 mg ONCE ONCE PO Last administered on at 09:34; Start 04/15/18 at 09:00; Stop 04/15/18 at 09:01; Status DC Glucagon (Glucagon Inj) 1 mg UNSCH PRN OTHER HYPOGLYCEMIA-SEE COMMENTS; Start 04/13/18 at 21:15 Insulin Aspart (NovoLOG SUPPLEMENTAL SCALE) 1 ACHS SLIDING SCALE SQ Last administered on 04/14/18at 22:17; Start 04/14/18 at 08:00 Lactulose (Lactulose Liq) 30 ml DAILY PRN PO SEVERE CONSITIPATION/ IF PO; Start 04/13/18 at 21:15 Levothyroxine Sodium (Synthroid) 25 mcg DAILY@0700 PO Last administered on at 05:36; Start 04/14/18 at 07:00 Magnesium Hydroxide (Milk Of Magnesia Liq) 30 ml Q12H PRN PO Mild constipation ; Start 04/13/18 at 21:15 Miscellaneous Information ([facility] Ordered Lab Info) SPECIFIC LAB TO BE DRAWN:RODRIGUEZ TROUGH DATE TO BE DRIdalia.. ONCE ONCE .XX ; Start 04/16/18 at 17:45; Stop 04/16/18 at 17:46 Morphine Sulfate (Morphine Inj) 2 mg Q3H PRN IV PUSH BREAKTHROUGH PAIN Last administered on 04/14/18at 10:16; Start 04/14/18 at 02:15 Naloxone HCl (Narcan Inj) 0.4 mg UNSCH PRN IV PUSH SEE LABEL COMMENTS; Start at 21:15 Ondansetron HCl (Zofran Inj) 4 mg Q6H PRN IVP NAUSEA OR VOMITING; Start at 21:15 Pharmacy Profile Note 0 ml @ 0 mls/hr UNSCH OTHER ; Start 04/13/18 at 21:15 Piperacillin Sod/ Tazobactam Sod 50 ml @ 100 mls/hr Q6H IV Last administered on 04/15/18 05:36; Start 04/14/18 at 00:00 Prednisone (Deltasone) 50 mg Q6H PO Last administered on 04/15/18 09:34; Start 04/14/18 at 21:00; Stop 04/15/18 at 09:01; Status DC Senna/Docusate Sodium (Zunilda-Colace) 1 tab BID PO Last administered on 04/15/18 09:33; Start 04/14/18 at 09:00 Sennosides (Senokot) 17.2 mg Q12H PRN PO Moderate constipation; Start 04/13/18 at 21:15 Sodium Chloride (NS Flush) 2 ml BID IV FLUSH Last administered on 04/14/18 23: 00; Start 04/14/18 at 09:00 Triamterene/HCTZ (Maxzide 37.5-25 Mg) 1 tab DAILY PO Last administered on 09:34; Start 04/14/18 at 09:00 Vancomycin HCl 1000 mg/Sodium Chloride 250 ml @ 250 mls/hr Q24H IV Last administered on 04/14/18 18:10; Start 04/14/18 at 18:00 A/P Assessment and Plan A/P 1- sepsis due to cellulitis/ UTI continue IV antibiotics as below- 2. Bilateral lower extremity wounds/cellulitis/peripheral vascular disease Vancomycin and Zosyn Podiatry consulted; recommended conservative treatment with wound care till seen by vascular surgery. Vascular surgery consulted, appreciate assistance ABIs with critical PAD- CTA run off pending. Blood, wound cultures pending 3- UTI with e-coli- continue antibiotic- 4. Diabetes mellitus Sliding-scale insulin Monitor blood glucose 5. Hypertension/hyperlipidemia/hypothyroidism Continue home medications Discharge Planning w/u in progress. Chioma Coker MD Apr 15, 2018 09:56
[2018-04-15] MEDS ORDERED: IOHEXOL 350 MG/ML 10 ML VIAL (for RAD DIAG) IVCONTRAST ONE (11:02)
--- NOTE | 2018-04-15 12:12 | RADRPT ---
EXAM DATE: 04/15/2018 11:56 AM EDT AGE/SEX: 72 years / Female INDICATIONS: Peripheral vascular disease, ischemic legs. CLINICAL DATA: This is the patient's initial encounter. Patient reports that signs and symptoms have been present for 1 day and indicates a pain score of 8/10. MEDICAL/SURGICAL HISTORY: Hypertension. Diabetes mellitus type I. Aneurysm, intracranial. . cereb ral aneurysm surgery RADIATION DOSE: 8.89 CTDI (mGy) COMPARISON: No prior exams available for comparison. TECHNIQUE: Volumetric scanning was performed using a multi-row detector CT scanner during bolus infu andrew of 100 ml Omnipaque 350 (iohexol) nonionic water-soluble contrast as a single exam dose. The data was post processed with a variety of visualization algorithms including full volume maximum inte nsity projection, multi-planar sliding thin slab reformation, curved planar reformation, and surface rendering techniques. Using automated exposure control and adjustment of the mA and/or kV according to patient size, radiation dose was kept as low as reasonably achievable to obtain optimal diagnostic quality images. FINDINGS: AORTA: Diffuse calcified and noncalcified atheromatous plaque throughout the abdominal aorta most pro nounced within the infrarenal aspect extending through the inflow vessels. This generates an irregula r luminal contour to the infrarenal aorta. No significant aneurysmal change. The right inflow is heav shruthi diseased and diffusely small in caliber. The external iliac artery averages 2 mm in diameter. The left inflow is heavily diseased and diffusely small in caliber. The external iliac artery averages 3 mm in diameter. High-grade stenosis involving the celiac origin. The SMA is patent as are the renal arteries. RIGHT LOWER EXTREMITY: The common femoral artery shows mild calcified plaque. It measures 4 mm in di ameter. The profunda femoris is patent. SFA is chronically occluded throughout with reconstitution of the sdxvd-ebt-qzot popliteal artery that measures 3 mm in diameter. It is patent. There is a high or igin to the posterior tibial artery which occurs at the level of the knee joint. Anterior tibial ariadne ry and peroneal artery share a common trunk. Three-vessel runoff observed to the foot. LEFT LOWER EXTREMITY: The common femoral artery shows minimal calcified plaque. It measures 4 mm in d iameter. The profunda femoris is patent. The SFA is occluded throughout. There is eventual reconstitu tion of the imtlx-zya-nxfe popliteal artery. Which measures 2 mm in diameter. Calcified plaque at the level of the femoral metaphysis 30% luminal narrowing. Popliteal arteries otherwise patent. Conventi onal anatomy seen at the trifurcation level. All 3 vessels are patent. OTHER STRUCTURES: There is a 2 cm area of vague poor enhancement involving the lateral upper pole the right kidney. This is not consistent with a cyst. A few scattered colonic diverticuli without acute inflammation. CONCLUSION: 1. Significant inflow disease bilaterally as detailed above. 2. Occluded SFAs bilaterally with reconstitution of the wjnkp-tzf-ritc popliteal arteries. Three-ves ioana runoff to both feet. 3. 2 cm area of poor enhancement involving the lateral upper pole of the right kidney concerning for a mass. Consider MRI to further assess. Electronically signed by: Dev Finn MD 04/15/2018 12:10 PM EDT
[2018-04-15 12:32] VITALS: BP 124/53; PULSE 92; RESP 18; TEMP 97.9; O2SAT 95
[2018-04-15] MEDS: ACETAMINOPHEN/HYDROcodone 325 MG/5 MG TAB PO PRN ×2 (14:54→21:34)
[2018-04-15 16:08] VITALS: BP 148/64; PULSE 89; RESP 18; TEMP 97.9; O2SAT 94
[2018-04-15] MEDS: VANCOMYCIN INJ 1,000 MG in SODIUM CHLOR 0.9% 250 ML INJ 250 ML IV SCH (18:28)
[2018-04-15 20:00] VITALS: BP 132/60; PULSE 91; RESP 18; TEMP 98.2; O2SAT 91
--- NOTE | 2018-04-15 20:00 | PD.CAR.PN ---
CVT Progress Note Subjective/Hospital Course: Referral received Full consult to dilcia García Objective: Vital Signs Date Time Temp Pulse Resp B/P (MAP) Pulse Ox O2 Delivery O2 Flow Rate FiO2 04/15/18 16:08 97.9 89 18 148/64 (92) 94 04/15/18 12:32 97.9 92 18 124/53 (76) 95 04/15/18 08:32 97.2 84 18 139/59 (85) 95 04/15/18 04:00 97.5 88 18 156/80 (105) 97 04/15/18 00:00 97.2 86 18 131/58 (82) 97 Result Diagram: 04/14/18 0653 04/14/18 0655 Angie Azul MD Apr 15, 2018 20:00
[2018-04-16] VITALS: BP 129/58; PULSE 89; RESP 18; TEMP 98; O2SAT 92
[2018-04-16] MEDS: PIPERACIL-TAZO 3.375 GM PREMIX 50 ML IV SCH ×4 (00:24→16:57)
[2018-04-16] MEDS: ACETAMINOPHEN/HYDROcodone 325 MG/5 MG TAB PO PRN ×3 (03:27→16:56)
[2018-04-16 04:00] VITALS: BP 141/59; PULSE 83; RESP 18; TEMP 97.8; O2SAT 92
[2018-04-16] MEDS: LEVOTHYROXINE SODIUM 25 MCG TAB PO SCH (06:02)
[2018-04-16] MEDS: SODIUM CHLORIDE 0.9% FLUSH 10 ML FLUSH IV FLUSH SCH ×2 (07:57→21:36)
[2018-04-16] MEDS: INSULIN ASPART SUPPLEMENTAL SCALE SQ SCH ×4 (07:57→21:35)
[2018-04-16] MEDS: TRIAMTERENE/HCTZ 37.5 MG/25 MG TAB PO SCH (07:58)
[2018-04-16] MEDS: DOCUSATE SODIUM 50 MG/SENNA 8.6 MG TAB PO SCH ×2 (07:58→21:36)
[2018-04-16] MEDS: COLLAGENASE OINT 30 GM TUBE TOPICAL SCH (08:01)
[2018-04-16 08:11] LABS: CREATININE 0.91 MG/DL (0.50-1.00)
[2018-04-16 08:15] VITALS: BP 103/52; PULSE 61; RESP 16; TEMP 98.1; O2SAT 95
[2018-04-16] MEDS: SODIUM CHLOR 0.9% 1000 ML INJ 1,000 ML IV SCH (11:08)
--- NOTE | 2018-04-16 11:40 | HHI.PR ---
Subjective Remarks in no acute distress. no fever. pain is controlled. Objective Vitals Vital Signs Date Time Temp Pulse Resp B/P (MAP) Pulse Ox O2 Delivery O2 Flow Rate FiO2 04/16/18 10:07 16 04/16/18 08:15 98.1 61 16 103/52 (69) 95 04/16/18 04:00 97.8 83 18 141/59 (86) 92 04/16/18 00:00 98.0 89 18 129/58 (81) 92 04/15/18 20:00 98.2 91 18 132/60 (84) 91 04/15/18 16:08 97.9 89 18 148/64 (92) 94 04/15/18 12:32 97.9 92 18 124/53 (76) 95 I/O 04/15/18 04/15/18 04/15/18 04/16/18 04/16/18 04/16/18 07:00 15:00 23:00 07:00 15:00 23:00 Intake Total 1069 ml 50 ml Balance 1069 ml 50 ml Intake IV Total 1069 ml 50 ml # Voids 2 3 2 # Bowel Movements 1 Result Diagram: 04/14/18 0653 04/16/18 0658 Imaging Last Impressions Aorta w/Runoff CTA 04/15/18 1000 Signed Impressions: OTHER STRUCTURES: There is a 2 cm area of vague poor enhancement involving the lateral upper pole the right kidney. This is not consistent with a cyst. A few scattered colonic diverticuli without acute inflammation. CONCLUSION: 1. Significant inflow disease bilaterally as detailed above. 2. Occluded SFAs bilaterally with reconstitution of the jfpjm-aqw-muiv poplite al arteries. Three-vessel runoff to both feet. 3. 2 cm area of poor enhancement involving the lateral upper pole of the right kidney concerning for a mass. Consider MRI to further assess. Extremity Arterial Study 04/13/18 0000 Signed Impressions: CONCLUSION: Critical PAD bilaterally. Objective Remarks GENERAL: This is a well-nourished, well-developed patient, in no apparent distress. CARDIOVASCULAR: Regular rate and regular rhythm without murmurs, gallops, or rubs. RESPIRATORY: Clear to auscultation. Breath sounds equal bilaterally. No wheezes , rales, or rhonchi. GASTROINTESTINAL: Abdomen soft, non-tender, nondistended. Normal, active bowel sounds MUSCULOSKELETAL: Extremities with open wound on right leg NEURO: Alert & Oriented x4 to person, place, time, situation. Moves all ext x4 Medications and IVs Inpatient Medications Acetaminophen (Tylenol) 650 mg Q4H PRN PO TEMP > 100.4; Start 04/13/18 at 21:15 Acetaminophen/ Hydrocodone Bitart ([place] 5-325 Mg) 2 tab Q6H PRN PO PAIN 8-10 Last administered on 04/16/18at 09:24; Start 04/14/18 at 10:15 Bisacodyl (Dulcolax Supp) 10 mg DAILY PRN RECTAL SEVERE CONSITIPATION/ IF NPO ; Start 04/13/18 at 21:15 Collagenase (Santyl Oint) 1 applic DAILY TOPICAL Last administered on 04/16/18at 08:01; Start 04/15/18 at 09:00 Dextrose (D50w (Vial) Inj) 50 ml UNSCH PRN IV PUSH HYPOGLYCEMIA-SEE COMMENTS; Start 04/13/18 at 21:15 Diphenhydramine HCl (Benadryl) 50 mg ONCE ONCE PO Last administered on at 09:34; Start 04/15/18 at 09:00; Stop 04/15/18 at 09:01; Status DC Glucagon (Glucagon Inj) 1 mg UNSCH PRN OTHER HYPOGLYCEMIA-SEE COMMENTS; Start 04/13/18 at 21:15 Insulin Aspart (NovoLOG SUPPLEMENTAL SCALE) 1 ACHS SLIDING SCALE SQ Last administered on 04/16/18at 11:07; Start 04/14/18 at 08:00 Lactulose (Lactulose Liq) 30 ml DAILY PRN PO SEVERE CONSITIPATION/ IF PO; Start 04/13/18 at 21:15 Levothyroxine Sodium (Synthroid) 25 mcg DAILY@0700 PO Last administered on at 06:02; Start 04/14/18 at 07:00 Magnesium Hydroxide (Milk Of Magnesia Liq) 30 ml Q12H PRN PO Mild constipation ; Start 04/13/18 at 21:15 Miscellaneous Information ([facility] Ordered Lab Info) SPECIFIC LAB TO BE DRAWN:VANCO TROUGH DATE TO BE DRIdalia.. ONCE ONCE .XX ; Start 04/16/18 at 17:45; Stop 04/16/18 at 17:46 Morphine Sulfate (Morphine Inj) 2 mg Q3H PRN IV PUSH BREAKTHROUGH PAIN Last administered on 04/14/18at 10:16; Start 04/14/18 at 02:15 Naloxone HCl (Narcan Inj) 0.4 mg UNSCH PRN IV PUSH SEE LABEL COMMENTS; Start at 21:15 Ondansetron HCl (Zofran Inj) 4 mg Q6H PRN IVP NAUSEA OR VOMITING; Start at 21:15 Pharmacy Profile Note 0 ml @ 0 mls/hr UNSCH OTHER ; Start 04/13/18 at 21:15 Piperacillin Sod/ Tazobactam Sod 50 ml @ 100 mls/hr Q6H IV Last administered on 04/16/18at 11:07; Start 04/14/18 at 00:00 Prednisone (Deltasone) 50 mg Q6H PO Last administered on 04/15/18at 09:34; Start 04/14/18 at 21:00; Stop 04/15/18 at 09:01; Status DC Senna/Docusate Sodium (Zunilda-Colace) 1 tab BID PO Last administered on 04/15/18at 21:35; Start 04/14/18 at 09:00 Sennosides (Senokot) 17.2 mg Q12H PRN PO Moderate constipation; Start 04/13/18 at 21:15 Sodium Chloride (NS Flush) 2 ml BID IV FLUSH Last administered on 04/16/18at 07: 57; Start 04/14/18 at 09:00 Triamterene/HCTZ (Maxzide 37.5-25 Mg) 1 tab DAILY PO Last administered on at 07:58; Start 04/14/18 at 09:00 Vancomycin HCl 1000 mg/Sodium Chloride 250 ml @ 250 mls/hr Q24H IV Last administered on 04/15/18at 18:28; Start 04/14/18 at 18:00 A/P Assessment and Plan A/P 1- sepsis due to cellulitis/ UTI continue IV antibiotics as below- 2. Bilateral lower extremity wounds/cellulitis/peripheral vascular disease Vancomycin and Zosyn Podiatry consulted; recommended conservative treatment with wound care till seen by vascular surgery. Vascular surgery consulted, appreciate assistance ABIs with critical PAD- CTA run off as noted above. 3- UTI with e-coli- continue antibiotic- 4. Diabetes mellitus Sliding-scale insulin Monitor blood glucose 5. Hypertension/hyperlipidemia/hypothyroidism Continue home medications 6; questionable right kidney mass- check US kidney. DVT prophylaxis with subq Lovenox. Discharge Planning awaiting CT surgery f/u and recommendations. Chioma Coker MD Apr 16, 2018 11:40
[2018-04-16 11:45] VITALS: BP 107/62; PULSE 69; RESP 16; TEMP 98.3; O2SAT 95
[2018-04-16] MEDS: ENOXAPARIN SODIUM 40 MG/0.4 ML SYRINGE SQ SCH (14:50)
[2018-04-16 17:05] VITALS: BP 115/58; PULSE 61; RESP 16; TEMP 97.9; O2SAT 97
[2018-04-16] MEDS ORDERED: PHARMACY ORDERED LAB ONE (17:45)
--- NOTE | 2018-04-16 17:53 | RADRPT ---
EXAM DATE: 04/16/2018 5:32 PM EDT AGE/SEX: 72 years / Female INDICATIONS: Right kidney mass. CLINICAL DATA: This is the patient's initial encounter. Patient reports that signs and symptoms have been present for 1 day and indicates a pain score of 0/10. MEDICAL/SURGICAL HISTORY: . Hypertension. Diabetes mellitus type I. Aneurysm, intracranial. . Aneurysm surgery. COMPARISON: C, CTA RUNOFF W 3D RECON, 04/15/2018. . No external comparison. CTA runoff indicated kidney mass. MEASUREMENTS: Right Kidney:__11.0 x 5.6 x 4.7 cm cm Left Kidney:__10.4 x 5.3 x 5.2 cm cm FINDINGS: Right Kidney: There is a complex partially solid and partially cystic lesion in the lateral mid to up per pole of the right kidney which correlates with the recent CT finding. This is indeterminate for n eoplasm. This would be better evaluated with MRI. Left Kidney: No significant sonographic abnormality in the left kidney. Bladder: Within normal limits given the degree of distension. CONCLUSION: 1. Complex partially solid partially cystic 1.9 cm lesion in the mid to upper pole right kidney lexi elating with recent CT abnormality. This is indeterminate for neoplasm. Recommend further evaluation with MRI. Electronically signed by: Aj White MD 04/16/2018 5:51 PM EDT
[2018-04-16] MEDS: VANCOMYCIN INJ 1,000 MG in SODIUM CHLOR 0.9% 250 ML INJ 250 ML IV SCH (18:00)
--- NOTE | 2018-04-16 18:02 | MB ---
cc: Angie Azul MD, Slobodan MD DATE: 04/16/2018 REASON FOR CONSULTATION: Ischemia of both legs and ulcers of both feet. HISTORY OF PRESENT ILLNESS: This 72-year-old lady presents to the emergency room with ulcerations and wounds of both legs over the shins and over the dorsi side of the feet. The patient apparently has had these since November, has been treated on an outpatient basis and now has come to the hospital. She is under care of medicine and podiatry and I am asked to evaluate the patient for any vascular implications. PAST MEDICAL HISTORY: Diabetes mellitus, hypertension, hyperlipidemia, coronary artery disease and peripheral vascular disease. PAST SURGICAL HISTORY: Brain aneurysm clipping, ectopic , ovarian cyst removal, tonsillectomy. MEDICATIONS: 1. Tarceva 2. Aspirin, 3. Glipizide. 4. Synthroid. 5. Ibuprofen. 6. Hydrochlorothiazide. ALLERGIES: THE PATIENT IS ALLERGIC TO SULFA AND IODINE WELL METFORMIN. SOCIAL HISTORY: The patient smokes about 1 pack a day for about 60 years, since the age of 12 and continues to do so. PHYSICAL EXAMINATION: GENERAL: Reveals a 72-year-old female. HEENT: Normocephalic. No trauma to the head. Pupils equal, reactive. Extraocular muscles intact. NECK: Bilateral carotid pulses. No bruits. CHEST: Clear. Bilateral breath sounds decreased over both lungs mc consistent with moderate COPD. HEART: Regular rhythm. ABDOMEN: Soft. No rebound, no guarding, no masses. EXTREMITIES: I do not feel femoral, popliteal, dorsalis pedis or posterior tibial pulses in either leg. On bedside Doppler, I am getting posterior tibial and dorsalis pedis bilateral, very weak and very weak popliteal pulse. Femoral pulses I cannot detect no matter what. NEUROLOGIC: The patient is grossly intact. Assessment of feet reveals this patient has ulcerated, foul smelling wounds of bilateral lower extremities in pretibial area and then dorsum of the feet. IMPRESSION AND RECOMMENDATIONS: I reviewed laboratory and diagnostic procedures. This lady indeed has vascular occlusive changes with small vessel disease of both legs and, as such, resulting in necrotic areas of the skin in a specific vasotome. CTA reveals very diminutive size vessels in the inflow area including external iliacs that measure about 2 mm and then occlusion of both superficial femoral venous arteries with reconstitution of above popliteal that is about 2-3 mm in size. Based on this, this patient is not a candidate for any type of surgery or any type of reconstruction. I thank you much for referral. MD THONY Navarro/ , 05:37 PM , 06:01 PM
[2018-04-16] MEDS: MORPHINE SULFATE 4 MG/ML INJ IV PUSH PRN ×2 (18:04→21:37)
[2018-04-16 20:00] VITALS: BP 129/67; PULSE 103; RESP 18; TEMP 97.5; O2SAT 98
[2018-04-17] VITALS: BP 153/67; PULSE 81; RESP 18; TEMP 97.3; O2SAT 96
[2018-04-17] MEDS: PIPERACIL-TAZO 3.375 GM PREMIX 50 ML IV SCH ×5 (00:27→23:24)
[2018-04-17] MEDS: ACETAMINOPHEN/HYDROcodone 325 MG/5 MG TAB PO PRN ×4 (00:27→20:52)
[2018-04-17 04:00] VITALS: BP 138/65; PULSE 80; RESP 18; TEMP 97.4; O2SAT 96
[2018-04-17] MEDS: SODIUM CHLOR 0.9% 1000 ML INJ 1,000 ML IV SCH ×2 (04:10→20:50)
[2018-04-17] MEDS: LEVOTHYROXINE SODIUM 25 MCG TAB PO SCH (06:20)
[2018-04-17 08:58] VITALS: BP 151/68; PULSE 91; RESP 20; TEMP 97.4; O2SAT 99
[2018-04-17] MEDS: DOCUSATE SODIUM 50 MG/SENNA 8.6 MG TAB PO SCH ×2 (09:17→20:53)
[2018-04-17] MEDS: TRIAMTERENE/HCTZ 37.5 MG/25 MG TAB PO SCH (09:17)
[2018-04-17] MEDS: SODIUM CHLORIDE 0.9% FLUSH 10 ML FLUSH IV FLUSH SCH ×2 (09:18→20:52)
[2018-04-17] MEDS: MORPHINE SULFATE 4 MG/ML INJ IV PUSH PRN ×3 (09:18→23:24)
[2018-04-17] MEDS: INSULIN ASPART SUPPLEMENTAL SCALE SQ SCH ×4 (09:19→21:08)
[2018-04-17] MEDS: COLLAGENASE OINT 30 GM TUBE TOPICAL SCH (09:26)
[2018-04-17 12:03] VITALS: BP 135/62; PULSE 89; RESP 20; TEMP 98; O2SAT 98
[2018-04-17] MEDS: ENOXAPARIN SODIUM 40 MG/0.4 ML SYRINGE SQ SCH (12:45)
--- NOTE | 2018-04-17 15:59 | HHI.PR ---
Subjective Remarks Seen bedside. Resting comfortably. No concerns or complaints at this time Objective Vital Signs Date Time Temp Pulse Resp B/P (MAP) Pulse Ox O2 Delivery O2 Flow Rate FiO2 04/17/18 12:03 98.0 89 20 135/62 (86) 98 04/17/18 08:58 97.4 91 20 151/68 (95) 99 04/17/18 04:00 97.4 80 18 138/65 (89) 96 04/17/18 00:00 97.3 81 18 153/67 (95) 96 04/16/18 20:00 97.5 103 18 129/67 (87) 98 04/16/18 18:13 16 04/16/18 17:57 16 04/16/18 17:05 97.9 61 16 115/58 (77) 97 I/O 04/16/18 04/16/18 04/16/18 04/17/18 04/17/18 04/17/18 07:00 15:00 23:00 07:00 15:00 23:00 Intake Total 670 ml Balance 670 ml Intake Oral 620 ml IV Total 50 ml # Voids 2 6 # Bowel Movements 1 3 Result Diagram: 04/14/18 0653 04/16/18 0658 Imaging Last Impressions Renal Ultrasound 04/16/18 0000 Signed Impressions: CONCLUSION: 1. Complex partially solid partially cystic 1.9 cm lesion in the mid to upper pole right kidney correlating with recent CT abnormality. This is indeterminate for neoplasm. Recommend further evaluation with MRI. Aorta w/Runoff CTA 04/15/18 1000 Signed Impressions: OTHER STRUCTURES: There is a 2 cm area of vague poor enhancement involving the lateral upper pole the right kidney. This is not consistent with a cyst. A few scattered colonic diverticuli without acute inflammation. CONCLUSION: 1. Significant inflow disease bilaterally as detailed above. 2. Occluded SFAs bilaterally with reconstitution of the ewxuj-qet-pinf poplite al arteries. Three-vessel runoff to both feet. 3. 2 cm area of poor enhancement involving the lateral upper pole of the right kidney concerning for a mass. Consider MRI to further assess. Extremity Arterial Study 04/13/18 0000 Signed Impressions: CONCLUSION: Critical PAD bilaterally. Other Results Microbiology Date/Time Source Procedure Growth Status 04/13/18 17:45 Blood Peripheral Aerobic Blood Culture - Preliminary NO GROWTH IN 4 DAYS Resulted 04/13/18 17:45 Blood Peripheral Anaerobic Blood Culture - Preliminary NO GROWTH IN 4 DAYS Resulted 04/13/18 16:00 Urine Random Urine Urine Culture - Final Escherichia Coli Complete Objective Remarks Lower extremity physical exam: Vascular: Dorsalis pedis nonpalpable, posterior tibial nonpalpable. Capillary refill time within normal limits to digits 5 bilateral foot. Edema present bilateral lower extremity Neuro: Gross sensation intact to bilateral lower extremity. Pinpoint sensation intact. No hyperalgesia noted to bilateral lower extremity Dermatology: Normal temperature and turgor to bilateral lower extremity. Ulcerations noted to right medial and lateral leg with fibrotic necrotic base, probing to bone, serous drainage noted, associated erythema and edema. Left hallux ulceration with completely eschar, necrotic base, no drainage noted, probe to bone noted, with associated erythema and edema. Musculoskeletal: Tender to palpation to bilateral lower extremities at ulceration site Medications and IVs Current Medications Medications (Trade) Dose Ordered Sig/Carrie Route Start Time Stop Time Status Last Admin Piperacillin Sod/ Tazobactam Sod 50 ml @ 100 mls/hr Q6H IV 04/14/18 00:00 04/17/18 12:45 Pharmacy Profile Note 0 ml @ 0 mls/hr UNSCH OTHER 04/13/18 21:15 Sodium Chloride 1,000 ml @ 60 mls/hr [id number] IV 04/13/18 21:03 04/16/18 11:08 (NS Flush) 2 ml UNSCH PRN IV FLUSH 04/13/18 21:15 (NS Flush) 2 ml BID IV FLUSH 04/14/18 09:00 04/17/18 09:18 (Tylenol) 650 mg Q4H PRN PO 04/13/18 21:15 (Zofran Inj) 4 mg Q6H PRN IVP 04/13/18 21:15 (Narcan Inj) 0.4 mg UNSCH PRN IV PUSH 04/13/18 21:15 (Zunilda-Colace) 1 tab BID PO 04/14/18 09:00 04/16/18 21:36 (Milk Of Magnesia Liq) 30 ml Q12H PRN PO 04/13/18 21:15 (Senokot) 17.2 mg Q12H PRN PO 04/13/18 21:15 (Dulcolax Supp) 10 mg DAILY PRN RECTAL 04/13/18 21:15 (Lactulose Liq) 30 ml DAILY PRN PO 04/13/18 21:15 (Synthroid) 25 mcg DAILY@0700 PO 04/14/18 07:00 04/17/18 06:20 (Maxzide 37.5-25 Mg) 1 tab DAILY PO 04/14/18 09:00 04/17/18 09:17 (D50w (Vial) Inj) 50 ml UNSCH PRN IV PUSH 04/13/18 21:15 (Glucagon Inj) 1 mg UNSCH PRN OTHER 04/13/18 21:15 (NovoLOG SUPPLEMENTAL SCALE) 1 ACHS SLIDING SCALE SQ 04/14/18 08:00 04/17/18 12:45 (Morphine Inj) 2 mg Q3H PRN IV PUSH 04/14/18 02:15 04/17/18 09:18 ([place] 5-325 Mg) 1 tab Q6H PRN PO 04/14/18 10:15 04/15/18 06:38 ([place] 5-325 Mg) 2 tab Q6H PRN PO 04/14/18 10:15 04/17/18 12:46 (Santyl Oint) 1 applic DAILY TOPICAL 04/15/18 09:00 04/17/18 09:26 (Lovenox Inj) 40 mg Q24H SQ 04/16/18 15:00 04/17/18 12:45 Vancomycin HCl 1250 mg/Sodium Chloride 262.5 ml @ 250 mls/hr Q24H IV 04/17/18 18:00 ([facility] Ordered Lab Info) SPECIFIC LAB TO BE DRAWN:VANCO TROUGH DATE TO BE DR... ONCE ONCE .XX 04/20/18 17:45 04/20/18 17:46 Assessment and Plan Assessment and Plan 72-year-old female with bilateral lower extremity ulcerations Patient examined and evaluated with all questions answered Perivascular surgery no intervention at this time Secondary to small vessel disease below the knee no surgical intervention per podiatry expected at this time Patient will need local wound care and conservative treatment Continue with conservative care at this time Wound care nurse consult placed Brittnee Osorio DPM Apr 17, 2018 15:59
[2018-04-17 16:48] VITALS: BP 111/58; PULSE 92; RESP 20; TEMP 98.2; O2SAT 96
--- NOTE | 2018-04-17 17:32 | HHI.PR ---
Subjective Remarks The patient complains of rash in bilateral upper extremities with itching. Patient concerned about rash and scabs over neck and upper extremities. Patient is afebrile. Pain is controlled. Objective Vitals Vital Signs Date Time Temp Pulse Resp B/P (MAP) Pulse Ox O2 Delivery O2 Flow Rate FiO2 04/17/18 16:48 98.2 92 20 111/58 (75) 96 04/17/18 12:03 98.0 89 20 135/62 (86) 98 04/17/18 08:58 97.4 91 20 151/68 (95) 99 04/17/18 04:00 97.4 80 18 138/65 (89) 96 04/17/18 00:00 97.3 81 18 153/67 (95) 96 04/16/18 20:00 97.5 103 18 129/67 (87) 98 04/16/18 18:13 16 04/16/18 17:57 16 I/O 04/16/18 04/16/18 04/16/18 04/17/18 04/17/18 04/17/18 06:59 14:59 22:59 06:59 14:59 22:59 Intake Total 670 ml Balance 670 ml Intake Oral 620 ml IV Total 50 ml # Voids 2 6 # Bowel Movements 1 3 Result Diagram: 04/14/18 0653 04/16/18 0658 Imaging Last Impressions Renal Ultrasound 04/16/18 0000 Signed Impressions: CONCLUSION: 1. Complex partially solid partially cystic 1.9 cm lesion in the mid to upper pole right kidney correlating with recent CT abnormality. This is indeterminate for neoplasm. Recommend further evaluation with MRI. Aorta w/Runoff CTA 04/15/18 1000 Signed Impressions: OTHER STRUCTURES: There is a 2 cm area of vague poor enhancement involving the lateral upper pole the right kidney. This is not consistent with a cyst. A few scattered colonic diverticuli without acute inflammation. CONCLUSION: 1. Significant inflow disease bilaterally as detailed above. 2. Occluded SFAs bilaterally with reconstitution of the preuf-uih-sfei poplite al arteries. Three-vessel runoff to both feet. 3. 2 cm area of poor enhancement involving the lateral upper pole of the right kidney concerning for a mass. Consider MRI to further assess. Extremity Arterial Study 04/13/18 0000 Signed Impressions: CONCLUSION: Critical PAD bilaterally. Objective Remarks AAOx3 Clear lungs BL S1S2 RRR abdomen soft, nt, nd Bilateral lower extremity wounds draining foul-smelling, purulent material. Lower extremities with erythema and edema. Bilateral upper extremities with honey crusted lesions and mild erythema but no warmth. Neck also has some honey crusted lesions as well. A/P Problem List: (1) Sepsis ICD Code: A41.9 - Sepsis, unspecified organism Status: Acute Plan: Sepsis present on admission patient with leukocytosis, heart rate more than 90 with the source being the lower extremities. Sepsis secondary likely to cellulitis and urinary tract infection. Continue IV antibiotics -currently on IV vancomycin IV Zosyn. Sepsis clinically improving. Monitor CBC (2) UTI (urinary tract infection) ICD Code: N39.0 - Urinary tract infection, site not specified Status: Acute Plan: Continue IV antibiotics as above. Urine culture growing E. coli. (3) Bilateral lower leg cellulitis ICD Code: L03.116 - Cellulitis of left lower limb; L03.115 - Cellulitis of right lower limb Status: Acute Plan: IV antibiotics as above. Podiatry consulted, recommended conservative management with wound care and vascular surgery consultation. Vascular surgery consulted. I discussed the case with Dr. Billy. The patient has vascular occlusive changes with a small vessel disease of both legs and as such resulting in necrotic areas of the skin in a specific muscle tone. CTA however reveals very diminutive sized vessels in the inflow area based on this the patient is not a candidate of any type of surgery or any type of reconstruction. Given the distribution of rash in the upper extremities, neck and lower extremities. Vasculitis need to be taken into account differential diagnosis. I will check ROBE, hepatitis profile, CRP, sedimentation rate, complement C3 and C4, antineutrophil cytoplasmic antibodies, cryoglobulins to rule out vasculitis. Consult infectious disease, will order wound culture. (4) Diabetes ICD Code: E11.9 - Type 2 diabetes mellitus without complications Plan: Blood sugar severely elevated in the 200s range. Continue SSI with insulin NovoLog and resume home insulin. Check hemoglobin A1c and lipid profile if not previously done. (5) HTN (hypertension) ICD Code: I10 - Essential (primary) hypertension Plan: Blood pressure seems to be stable. Continue triamterene/ hydrochlorothiazide. (6) Hyperlipidemia ICD Code: E78.5 - Hyperlipidemia, unspecified Plan: Not on any medications. We will check lipid profile. If there is no contraindication will start on statin therapy in a.m. (7) Hypothyroidism ICD Code: E03.9 - Hypothyroidism, unspecified Status: Chronic Plan: Continue levothyroxine. Check TSH if not previously done. Problem Qualifiers (1) UTI (urinary tract infection): Qualified Codes: N30.00 - Acute cystitis without hematuria (2) Diabetes: Qualified Codes: E11.8 - Type 2 diabetes mellitus with unspecified complications; Z79.4 - roasterman (current) use of insulin (3) HTN (hypertension): Qualified Codes: I10 - Essential (primary) hypertension (4) Hyperlipidemia: Qualified Codes: E78.5 - Hyperlipidemia, unspecified Chandler Jackman MD Apr 17, 2018 17:32
[2018-04-17] MEDS ORDERED: diphenhydrAMINE HCL 25 MG CAP PO PRN (17:45)
[2018-04-17] MEDS ORDERED: VANCOMYCIN INJ 1,250 MG in SODIUM CHLOR 0.9% 250 ML INJ 250 ML IV SCH (18:00)
[2018-04-17 20:00] VITALS: BP 141/61; PULSE 83; RESP 18; TEMP 97.9; O2SAT 95
[2018-04-17 20:40] LABS: COMPLEMENT C4 24 MG/DL (10-40)
[2018-04-17] MEDS ORDERED: INSULIN DEGLUDEC 15 UNIT SQ SCH (21:00)
[2018-04-17] MEDS: MUPIROCIN 2% CREAM 15 GM TOPICAL SCH (21:00)
[2018-04-18] VITALS: BP 135/60; PULSE 81; RESP 18; TEMP 97.9; O2SAT 97
[2018-04-18 04:00] VITALS: BP 167/68; PULSE 85; RESP 18; TEMP 98.1; O2SAT 96
[2018-04-18] MEDS: PIPERACIL-TAZO 3.375 GM PREMIX 50 ML IV SCH ×4 (05:30→23:58)
[2018-04-18] MEDS: ACETAMINOPHEN/HYDROcodone 325 MG/5 MG TAB PO PRN ×3 (05:30→21:09)
[2018-04-18] MEDS: LEVOTHYROXINE SODIUM 25 MCG TAB PO SCH (05:30)
[2018-04-18 08:38] VITALS: BP 136/70; PULSE 86; RESP 20; TEMP 98.2; O2SAT 98
[2018-04-18] MEDS: MORPHINE SULFATE 4 MG/ML INJ IV PUSH PRN ×3 (08:40→23:58)
[2018-04-18] MEDS: TRIAMTERENE/HCTZ 37.5 MG/25 MG TAB PO SCH (08:41)
[2018-04-18] MEDS: INSULIN ASPART SUPPLEMENTAL SCALE SQ SCH ×4 (08:42→21:46)
[2018-04-18] MEDS: SODIUM CHLORIDE 0.9% FLUSH 10 ML FLUSH IV FLUSH SCH ×2 (08:42→21:09)
[2018-04-18] MEDS: DOCUSATE SODIUM 50 MG/SENNA 8.6 MG TAB PO SCH ×2 (08:42→21:00)
[2018-04-18] MEDS: MUPIROCIN 2% CREAM 15 GM TOPICAL SCH ×2 (08:42→21:10)
[2018-04-18] MEDS: COLLAGENASE OINT 30 GM TUBE TOPICAL SCH (08:43)
--- NOTE | 2018-04-18 11:14 | PD.VS.CON ---
History of Present Illness Chief Complaint: Bilateral Lower Extremity non healing wounds since November Consult Requested by: Dr. Osorio History of Present Illness 75/F with a PMH of DM, HTN, PVD, CAD, Brain aneurysm and Hyperlipidemia Pt presented to the ED c/o non healing/edematous/ weeping B LE wounds since November Pt reported she recently went to urgent care and was prescribed an antibiotic ( Doxycycline) for 10 days which did not improve her wounds Pt c/o short distance B LE claudication worse on the R LE cool to touch w/ motor intact Pt denied rest pain Pt endorsed increased episodes of Left sided Chest tightness (denied currently) (Liss Elena) Past/Family/Social History Past Medical History HTN PVD Brain Aneurysm Hyperlipidemia DM CAD Past Surgical History Tonsillectomy Brain aneurysm clipping Ectopic Ovarian cyst removal Social History 60 year smoking Hx- 1 ppd ETOH- Denied Illicit drug usage- Denied Lives with her spouse 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 (Liss Elena) Home Medications Reported Medications Triamterene-Hydrochlorothiazide (Triamterene-Hydrochlorothiazide) 37.5-25 Mg Tab , 1 TAB DAILY, #30 TAB 0 Refills 04/13/18 Ibuprofen (Ibuprofen) 200 Mg Cap, 200 MG PO Q6H Y for PAIN SCALE 1 TO 10, CAP 0 Refills 04/13/18 Insulin Degludec Inj (Tresiba Flextouch Pen Inj) 300 unit/3 ML Pen, 15 UNITS SQ HS for Blood Sugar Management, #15 ML 0 Refills 04/13/18 Aspirin (Aspirin Low Dose) 81 Mg Chew, 162 MG CHEW DAILY, TAB 0 Refills 04/13/18 Glipizide (Glipizide) 5 Mg Tab, 5 MG PO BIDAC for Blood Sugar Management, #60 TAB 0 Refills Take 30 minutes before a meal 04/13/18 Levothyroxine (Synthroid) 25 Mcg Tab, 25 MCG PO DAILY for Thyroid, #30 TAB 0 Refills 04/13/18 Coded Allergies: Sulfa (Sulfonamide Antibiotics) (Verified Allergy, Severe, GI, 04/13/18) iodine (Verified Allergy, Severe, Anaphylaxis, 04/13/18) metformin (Verified Allergy, Severe, GI, 04/13/18) linagliptin (Verified Allergy, Intermediate, 04/13/18) Review of Systems Constitutional: DENIES: Fatigue, Fever, Chills Cardiovascular: COMPLAINS OF: Lower Extremity Edema (B LE weeping ), Claudication (R>L), DENIES: Chest pain Gastrointestinal: DENIES: Abdominal pain Integumentary: DENIES: Abnormal pigmentation (B LE erythema from mid calf to feet ) (Liss Elena) Physical Exam Vitals/I&O Date Time Temp Pulse Resp B/P (MAP) Pulse Ox O2 Delivery O2 Flow Rate FiO2 04/18/18 08:38 98.2 86 20 136/70 (92) 98 04/18/18 04:00 98.1 85 18 167/68 (101) 96 04/18/18 00:00 97.9 81 18 135/60 (85) 97 04/17/18 20:00 97.9 83 18 141/61 (87) 95 04/17/18 16:48 98.2 92 20 111/58 (75) 96 04/17/18 12:03 98.0 89 20 135/62 (86) 98 04/18/18 04/18/18 04/18/18 07:00 15:00 23:00 Intake Total 360 ml Balance 360 ml Neuro: CN 2-12 intact Speech clear GCS 15 HEENT: Hannah Neck: No JVD distention Heart: RRR Lungs: CTA Abdomen: S/NT Vascular: Palpable LEFT Femoral pulse Non Palpable RIGHT Femoral Non Palpable R/L DP/PT Monophasic L DP/PT Monophasic R DP/PT (faint) LE cool w/ motor intact Extremities: LE cool w/ motor intact Weeping edematous B LE Lateral aspect of R LE with deep ulceration/yellow exudate/erythema dianna wound Medial aspect of R LE with deep ulceration/yellow exudate/erythema dianna wound R LE erythema from ankle to foot (weeping) L LE erythema from mid calf to foot (weeping) Left Great toe w/ erythema and dry necrotic ulceration (distal end) (Liss Elena) Laboratory Tests Test 04/17/18 19:05 Erythrocyte Sedimentation Rate 65 C-Reactive Protein 2.50 Thyroid Stimulating Hormone 3rd Gen 0.155 Complement C3 113 Complement C4 24 Hepatitis A IgM Antibody NONREACTIVE Hepatitis B Surface Antigen NONREACTIVE Hepatitis B Core IgM Antibody NONREACTIVE Hepatitis C IgG Antibody NONREACTIVE Date/Time Source Procedure Growth Status 04/13/18 17:45 Blood Peripheral Aerobic Blood Culture - Preliminary NO GROWTH IN 4 DAYS Resulted 04/13/18 17:45 Blood Peripheral Anaerobic Blood Culture - Preliminary NO GROWTH IN 4 DAYS Resulted 04/13/18 16:00 Urine Random Urine Urine Culture - Final Escherichia Coli Complete 04/17/18 23:42 Wound Leg Gram Stain - Final Resulted 04/17/18 23:42 Wound Leg Wound Culture Pending Resulted (Liss Elena) Assessment and Plan Assessment: (1) Bilateral lower leg cellulitis Status: Acute Plan 72/F with B LE inflow disease/ occluded SFAs bilaterally with reconstitution of the [id number]-hzp-vujc popliteal arteries Pt w/ non palpable distal pulses and worsening B LE ulcerations Plan Reviewed CTA Planning LE revascularization Consult Cardiology Liss Elena NP [facility] [phone] (Liss Elena) Plan Agree with above. Pt seen, examined. multilevel B occlusive disease. Will plan for R groin reconstruction, B LE angiogram/endovascular intervention. May require second procedure for LEFT leg. Tentatively on for WEDNESDAY 04/25 Pt notes nightly chest pain. Will ask cardiology to eval. Brando Thayer MD FACS [employer] cattle [employer] [facility] [phone] (Brando Thayer MD) Liss Elena Apr 18, 2018 11:14 Brando Thayer MD Apr 18, 2018 13:36
[2018-04-18 12:07] VITALS: BP 171/72; PULSE 56; RESP 20; TEMP 97.9; O2SAT 97
[2018-04-18] MEDS: SODIUM CHLOR 0.9% 1000 ML INJ 1,000 ML IV SCH ×2 (12:28→18:13)
[2018-04-18] MEDS: ENOXAPARIN SODIUM 40 MG/0.4 ML SYRINGE SQ SCH (12:30)
[2018-04-18 13:56] LABS: AUTOMATED NEUTROPHIL # 7.2 TH/MM3 (1.8-7.7); BASOPHIL % 0.5 % (0.0-2.0); EOSINOPHIL # 0.3 TH/MM3 (0-0.4); EOSINOPHIL % 2.9 % (0.0-4.0); HEMOGLOBIN 11.6 GM/DL (11.6-15.3); LYMPHOCYTE # 1.8 TH/MM3 (1.0-4.8); MEAN CELL VOLUME 87.5 FL (80.0-100.0); MEAN CORPUSCULAR HEMOGLOBIN 29.8 PG (27.0-34.0); MEAN PLATELET VOLUME 7.5 FL (7.0-11.0); MONO % 5.3 % (0.0-8.0); MONOCYTE # 0.5 TH/MM3 (0-0.9); NEUT % 73.3 % (16.0-70.0); PLATELET COUNT 448 TH/MM3 (150-450); RED BLOOD COUNT 3.89 MIL/MM3 (4.00-5.30); RED CELL DISTRIBUTION WIDTH 13.4 % (11.6-17.2); WHITE BLOOD COUNT 9.8 TH/MM3 (4.0-11.0)
[2018-04-18 14:10] LABS: ALBUMIN 2.9 GM/DL (3.4-5.0); AST (GOT) 22 U/L (15-37); BICARBONATE 23.5 MEQ/L (21.0-32.0); BLOOD UREA NITROGEN 10 MG/DL (7-18); CALCIUM 8.7 MG/DL (8.5-10.1); CHLORIDE 103 MEQ/L (98-107); CREATININE 0.71 MG/DL (0.50-1.00); GLOMERULAR FILTRATION RATE 81 ML/MIN (>89); GLUCOSE,RANDOM 211 MG/DL (74-106); MAGNESIUM 2.1 MG/DL (1.5-2.5); SODIUM (NA) 138 MEQ/L (136-145)
[2018-04-18 14:11] LABS: ALT (GPT) 27 U/L (10-53); PHOSPHORUS 1.8 MG/DL (2.5-4.9)
[2018-04-18 14:13] LABS: ALKALINE PHOSPHATASE 59 U/L (45-117); TOTAL BILIRUBIN ADULT 0.4 MG/DL (0.2-1.0)
[2018-04-18 16:01] VITALS: BP 104/57; PULSE 87; RESP 20; TEMP 98.5; O2SAT 98
[2018-04-18] MEDS ORDERED: POTASSIUM CHLORIDE 10 MEQ CONTROLLED RELEASE TAB PO ONE (16:30)
--- NOTE | 2018-04-18 16:39 | HHI.PR ---
Subjective Remarks Discussed case with the RN. Patient's blood sugars have been severely elevated in the 200s range. Patient states that pain is controlled. Denies any fevers or chills. Patient states that she has itching on bilateral upper extremities. Patient denied chest pain and shortness of breath to me. Objective Vitals Vital Signs Date Time Temp Pulse Resp B/P (MAP) Pulse Ox O2 Delivery O2 Flow Rate FiO2 04/18/18 16:01 98.5 87 20 104/57 (73) 98 04/18/18 12:07 97.9 56 20 171/72 (105) 97 04/18/18 08:38 98.2 86 20 136/70 (92) 98 04/18/18 04:00 98.1 85 18 167/68 (101) 96 04/18/18 00:00 97.9 81 18 135/60 (85) 97 04/17/18 20:00 97.9 83 18 141/61 (87) 95 04/17/18 16:48 98.2 92 20 111/58 (75) 96 I/O 04/17/18 04/17/18 04/17/18 04/18/18 04/18/18 04/18/18 07:00 15:00 23:00 07:00 15:00 23:00 Intake Total 670 ml 720 ml 360 ml Balance 670 ml 720 ml 360 ml Intake Oral 620 ml 720 ml 360 ml IV Total 50 ml # Voids 6 6 1 # Bowel Movements 3 3 Result Diagram: 04/18/18 1304 04/18/18 1304 Imaging Last Impressions Renal Ultrasound 04/16/18 0000 Signed Impressions: CONCLUSION: 1. Complex partially solid partially cystic 1.9 cm lesion in the mid to upper pole right kidney correlating with recent CT abnormality. This is indeterminate for neoplasm. Recommend further evaluation with MRI. Aorta w/Runoff CTA 04/15/18 1000 Signed Impressions: OTHER STRUCTURES: There is a 2 cm area of vague poor enhancement involving the lateral upper pole the right kidney. This is not consistent with a cyst. A few scattered colonic diverticuli without acute inflammation. CONCLUSION: 1. Significant inflow disease bilaterally as detailed above. 2. Occluded SFAs bilaterally with reconstitution of the gzzed-zja-okzn poplite al arteries. Three-vessel runoff to both feet. 3. 2 cm area of poor enhancement involving the lateral upper pole of the right kidney concerning for a mass. Consider MRI to further assess. Extremity Arterial Study 04/13/18 0000 Signed Impressions: CONCLUSION: Critical PAD bilaterally. Objective Remarks AAOx3 Clear lungs BL S1S2 RRR abdomen soft, nt, nd Bilateral lower extremity wounds draining foul-smelling, purulent material. Lower extremities with erythema and edema. Bilateral upper extremities with honey crusted lesions and mild erythema but no warmth. Neck also has some honey crusted lesions as well. A/P Problem List: (1) Sepsis ICD Code: A41.9 - Sepsis, unspecified organism Status: Acute Plan: Sepsis present on admission patient with leukocytosis, heart rate more than 90 with the source being the lower extremities. Sepsis secondary likely to cellulitis and urinary tract infection. Continue IV antibiotics -currently on IV vancomycin IV Zosyn. Sepsis clinically improving. Monitor CBC ID consulted -pending recommendations. (2) UTI (urinary tract infection) ICD Code: N39.0 - Urinary tract infection, site not specified Status: Acute Plan: Continue IV antibiotics as above. Urine culture growing E. coli. (3) Bilateral lower leg cellulitis ICD Code: L03.116 - Cellulitis of left lower limb; L03.115 - Cellulitis of right lower limb Status: Acute Plan: IV antibiotics as above. Podiatry consulted, recommended conservative management with wound care and vascular surgery consultation. Vascular surgery consulted. I discussed the case with Dr. Billy. The patient has vascular occlusive changes with a small vessel disease of both legs and as such resulting in necrotic areas of the skin in a specific muscle tone. CTA however reveals very diminutive sized vessels in the inflow area based on this the patient is not a candidate of any type of surgery or any type of reconstruction. Given the distribution of rash in the upper extremities, neck and lower extremities. Vasculitis need to be taken into account differential diagnosis. I will check ROBE, hepatitis profile, CRP, sedimentation rate, complement C3 and C4, antineutrophil cytoplasmic antibodies, cryoglobulins to rule out vasculitis. I will also order a Lyme disease PCR, RPR, Lyme basement debridement antibodies, serum protein electrophoresis. Consult infectious disease, will order wound culture. 04/18 sed rate was very elevated at 65 and CRP also elevated at 2.50. Hepatitis profile nonreactive, normal C3 and C4. Other tests pending. Given the elevation of the CRP and ESR and distribution of rash and given that the rash started after administration of metformin, I suspect the patient has some type of vasculitis. I will start the patient on IV Solu-Medrol. Discussed the case with Liss Elena. She states that the plan from vascular surgery point will be to consult cardiology for cardiac clearance since patient complained of nightly chest pain (4) Diabetes ICD Code: E11.9 - Type 2 diabetes mellitus without complications Plan: Blood sugar severely elevated in the 200s range. Continue SSI with insulin NovoLog and resume home insulin. Check hemoglobin A1c and lipid profile if not previously done. 04/18 patient's blood sugar still severely elevated in the 200s range. Given the patient will be started on IV steroids, I will increase the sliding scale to high dose and start the patient on insulin Levemir 10 units subcu twice daily. (5) HTN (hypertension) ICD Code: I10 - Essential (primary) hypertension Plan: Blood pressure seems to be stable. Continue triamterene/ hydrochlorothiazide. (6) Hyperlipidemia ICD Code: E78.5 - Hyperlipidemia, unspecified Plan: Not on any medications. We will check lipid profile. If there is no contraindication will start on statin therapy in a.m. (7) Hypothyroidism ICD Code: E03.9 - Hypothyroidism, unspecified Status: Chronic Plan: Continue levothyroxine. Check TSH if not previously done. 6 02/16 TSH low at 0.155 (8) CAD (coronary artery disease) ICD Code: I25.10 - Atherosclerotic heart disease of [place] coronary artery without angina pectoris Plan: Patient complaining of chest tightness at night. Neurology consulted. Case was discussed with Dr. Caleb Fraga who recommends a carotid Dopplers, EKG , chest x-ray and cardiac catheterization. Patient was also started on beta- alfredo and a nitroglycerin patch. Assessment and Plan DVT prophylaxis: Lovenox subcutaneously. Discharge Planning Continue to monitor the medical floor. 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
[2018-04-18] MEDS ORDERED: diphenhydrAMINE HCL 50 MG CAP PO SCH (16:45)
[2018-04-18] MEDS ORDERED: DIAZEPAM 5 MG TAB PO SCH (16:45)
[2018-04-18 16:49] LABS: HEMOGLOBIN A1C 8.4 % (4.3-6.0)
--- NOTE | 2018-04-18 17:05 | MB ---
cc: Caleb Fraga MD DATE: 04/18/2018 REASON FOR CONSULTATION: Preoperative clearance for vascular surgery. HISTORY OF PRESENT ILLNESS: Nallely Gonzales is a 72-year-old woman with extremely severe vascular disease. Both legs have critical reductions in blood flow. She has no pulse in the right arm or any pulse in the lower extremities. She does have a pulse in the left radial. She has multiple cardiac risk factors including hypertension, diabetes, lifelong smoking a pack a day, hyperlipidemia and known peripheral arterial disease. She has refused nuclear stress test and has never had a nuclear stress test before. She is not able to do a treadmill with her legs and so her problems have just gone on and continued. She has had chronic angina she says going back many years. It comes on particularly if she is stressed; it is more frequent in the past month. Angina sounds typical with the substernal tightness with radiation to the left arm and shoulder, lasting about 5 minutes. It occurs with any type of stress. Her physical activity is severely limited due to claudication pain in both legs. PAST MEDICAL HISTORY: Includes hypertension, diabetes, hyperlipidemia, coronary artery disease, peripheral vascular disease. PAST SURGICAL HISTORY: Includes brain aneurysm clipping in 1976, ectopic , ovarian cyst removal, tonsillectomy. MEDICATIONS: 1. She is on an aspirin. 2. Glipizide. 3. Synthroid. There is no statin prescribed. ALLERGIES: SULFA. IODINE. METFORMIN. LINAGLIPTIN. FAMILY HISTORY: Father had diabetes, Mother CHF. SOCIAL HISTORY: Smokes 1 pack a day for 60 years. She has 1 child. She is . PHYSICAL EXAMINATION: GENERAL: Reveals a well-developed, well-nourished white female, in no acute distress. VITAL SIGNS: Charted. Blood pressure is being obtained in the left arm. HEENT: Unremarkable. NECK: Shows bilateral carotid bruits. There is also bilateral subclavian bruits. CHEST: Shows diminished breath sounds bilaterally. CARDIAC: Exam shows S1 and S2. Regular rate and rhythm. There is a harsh 2/6 systolic murmur. ABDOMEN: Soft. She has got severely diminished pulses in lower extremities. She has absent right radial pulse. SKIN: Skin is notable for multiple scabbed excoriation hurtado. She says she dug into herself itching due to a medicine that gave her a rash and itching. IMAGING STUDIES: Her chest x-ray has not been performed. LABORATORY DATA: Hematocrit is 34, creatinine is 0.71, potassium is 3.4 and I do not see any potassium was given to cover that. She has not had her carotids imaged yet. IMPRESSION: Severely vasculopathic, 72-year-old woman with vascular disease in all of her vascular beds. She is in a crisis with her legs. She has significant angina. PLAN: I will plan to do a diagnostic catheterization tomorrow morning at 7:30. I am going to get a STAT echo tonight so I will have that done before her catheterization. I am also going to order carotid Dopplers STAT to get those done. I expect it is likely she is going to have multivessel disease and might need bypass surgery before her legs can be fixed. Alternatively, she might be a candidate for percutaneous intervention. Further therapy to be determined. The patient has been informed she is at high risk. MD OMAR Singh/JESS , 04:27 PM , 05:03 PM
[2018-04-18 17:23] LABS: CHOLESTEROL/ HDL RATIO 3.42 RATIO; HDL CHOLESTEROL 38.3 MG/DL (40.0-60.0)
--- NOTE | 2018-04-18 17:26 | PD.WCN.NOT ---
Wound Consult Communicated with: GALE ash Additional Information: Patient not seen on [address] [place]. Attempted to see patient at around 1724 for application of dressing as ordered by Doctor Osorio as follows Apply optifoam AG gentle to BLE weeping wounds and secure loosely with cast padding. Patient is off the floor for stat Echocardiogram. Will see patient tomorrow. Supplies were left in patient's room and with GALE ash. Layla Friend [facility] Apr 18, 2018 17:26
[2018-04-18] MEDS: methylPREDNISolone SOD SUCC 40 MG/1 ML VIAL IV PUSH SCH ×2 (18:12→23:58)
[2018-04-18] MEDS: NITROGLYCERIN 2% OINT 1 GM PACKET TOPICAL SCH ×2 (18:13→23:58)
--- NOTE | 2018-04-18 18:21 | EKG ---
Date Performed: 04/18/2018 Time Performed: 16:23:45 PTAGE: 72 years EKG: Baseline artifact present Sinus rhythm MODERATE INTRAVENTRICULAR CONDUCTION DELAY NONSPECIFIC ST & T-WAVE ABNORMALITY There is ST elevation in lead AVR. One cannot rule out an ST elevation [place] and clinical correlation is suggested. DOCTOR: Gonzalo Becerril Interpretating Date/Time 04/18/2018 18:19:34
[2018-04-18 21:00] LABS: FREE T3 3.52 PG/ML (2.18-3.98); FREE T4 1.41 NG/DL (0.76-1.46)
[2018-04-18] MEDS ORDERED: INSULIN DETEMIR 100 UNITS/ML VIAL SQ SCH (21:00)
--- NOTE | 2018-04-18 21:01 | RADRPT ---
EXAM DATE: 04/18/2018 8:30 PM EDT AGE/SEX: 72 years / Female INDICATIONS: Shortness of breath. CLINICAL DATA: This is the patient's subsequent encounter. Patient reports that signs and symptoms h ave been present for 1 day and indicates a pain score of 0/10. MEDICAL/SURGICAL HISTORY: . Hypertension. Diabetes mellitus type I. Aneurysm, intracranial. . Aneurysm surgery. COMPARISON: No prior exams available for comparison. FINDINGS: The lungs are clear without infiltrate, nodule, or mass. There is no appreciable pleural effusion for technique. Heart and mediastinum are unremarkable. CONCLUSION: No acute cardiopulmonary disease. Electronically signed by: Liane Hagan MD 04/18/2018 9:00 PM EDT
[2018-04-18] MEDS: METOPROLOL TARTRATE 25 MG TAB PO SCH (21:09)
[2018-04-18 21:10] VITALS: BP 118/87; PULSE 90; RESP 19; TEMP 97.8; O2SAT 98
--- NOTE | 2018-04-18 22:47 | RADRPT ---
EXAM DATE: 04/18/2018 10:43 PM EDT AGE/SEX: 72 years / Female INDICATIONS: Bruit. CLINICAL DATA: This is the patient's initial encounter. Patient reports that signs and symptoms have been present for 1 day and indicates a pain score of 0/10. MEDICAL/SURGICAL HISTORY: Diabetes. Hypertension. Cardiovascular disease. Hyperlipidemia. P eripheral Vascular Disease. Tonsillectomy. Brain aneurysm clipping. COMPARISON: No prior exams available for comparison. VELOCITY PARAMETERS: ICA/CCA Ratio: Right 1.11 , Left 1.84 ICA: Right 76 cm/sec, Left 159 cm/sec CCA: Right 69 cm/sec, Left 86 cm/sec ECA: Right 106 cm/sec, Left 765 cm/sec Vertebral: Right 15 cm/sec antegrade, Left 166 cm/sec antegrade FINDINGS: Antegrade flow is seen in both vertebral arteries. There is mild to moderate atherosclerotic plaquing at the origin of both ICAs worse on the left without any significant stenosis. Elevated flow velocities and ICA/CCA ratios have been found to correlate with increased degrees of vessel stenosis, calculated as percentage of diameter relative to a normal segment of distal ICA. CONCLUSION: No evidence for hemodynamically significant stenosis. Electronically signed by: Liane Hagan MD 04/18/2018 10:46 PM EDT
[2018-04-19] VITALS (12 sets, daily range): BP systolic 71–122; BP diastolic 46–82; PULSE 71–98; RESP 12–18; TEMP 97.6–98.6; O2SAT 97–99
[2018-04-19] MEDS: ACETAMINOPHEN/HYDROcodone 325 MG/5 MG TAB PO PRN ×2 (04:27→21:26)
[2018-04-19] MEDS: NITROGLYCERIN 2% OINT 1 GM PACKET TOPICAL SCH ×3 (05:05→18:41)
[2018-04-19] MEDS: methylPREDNISolone SOD SUCC 40 MG/1 ML VIAL IV PUSH SCH ×2 (05:06→14:28)
[2018-04-19] MEDS: LEVOTHYROXINE SODIUM 25 MCG TAB PO SCH (05:06)
[2018-04-19] MEDS: PIPERACIL-TAZO 3.375 GM PREMIX 50 ML IV SCH ×3 (05:13→18:00)
[2018-04-19 06:09] LABS: AUTOMATED NEUTROPHIL # 7.1 TH/MM3 (1.8-7.7); BASOPHIL % 0.1 % (0.0-2.0); HEMATOCRIT 32.7 % (35.0-46.0); HEMOGLOBIN 10.8 GM/DL (11.6-15.3); LYMPH % 13.3 % (9.0-44.0); LYMPHOCYTE # 1.1 TH/MM3 (1.0-4.8); MEAN CELL VOLUME 88.9 FL (80.0-100.0); MEAN CORPUSCULAR HEMOGLOBIN 29.4 PG (27.0-34.0); MEAN CORPUSCULAR HGB CONC 33.1 % (32.0-36.0); MEAN PLATELET VOLUME 7.2 FL (7.0-11.0); MONO % 1.2 % (0.0-8.0); MONOCYTE # 0.1 TH/MM3 (0-0.9); NEUT % 85.4 % (16.0-70.0); PLATELET COUNT 409 TH/MM3 (150-450); RED BLOOD COUNT 3.68 MIL/MM3 (4.00-5.30); RED CELL DISTRIBUTION WIDTH 13.2 % (11.6-17.2); WHITE BLOOD COUNT 8.4 TH/MM3 (4.0-11.0)
[2018-04-19] MEDS: SODIUM CHLOR 0.9% 1000 ML INJ 1,000 ML IV SCH ×3 (06:10→20:50)
[2018-04-19 06:20] LABS: CALCIUM 8.7 MG/DL (8.5-10.1); CHOLESTEROL/ HDL RATIO 2.68 RATIO; CREATININE 0.91 MG/DL (0.50-1.00); HDL CHOLESTEROL 45.4 MG/DL (40.0-60.0)
[2018-04-19] MEDS ORDERED: HEPARIN-NS/PF INJ 1,000 ML ONE (07:05)
[2018-04-19] MEDS ORDERED: NITROGLYCERIN INJ 5 ML ONE (07:06)
[2018-04-19] MEDS ORDERED: HEPARIN SODIUM - IV 10,000 UNITS/10 ML VIAL ONE (07:06)
[2018-04-19] MEDS ORDERED: VERAPAMIL HCL 5 MG/2 ML VIAL ONE (07:06)
[2018-04-19] MEDS: INSULIN ASPART SUPPLEMENTAL SCALE SQ SCH ×4 (07:12→21:00)
[2018-04-19] MEDS ORDERED: diphenhydrAMINE HCL 50 MG/ML VIAL ONE (07:31)
[2018-04-19] MEDS ORDERED: methylPREDNISolone SOD SUCC 125 MG/2 ML VIAL ONE (07:31)
[2018-04-19] MEDS ORDERED: MIDAZOLAM HCL 2 MG/2 ML VIAL ONE (07:48)
[2018-04-19] MEDS ORDERED: SODIUM CHLOR 0.9% 1000 ML INJ 1,000 ML IV SCH (08:42)
[2018-04-19] MEDS ORDERED: MISC INFORMATION XX ONE (08:45)
[2018-04-19] MEDS ORDERED: BACITRACIN OINT 0.9 GM PKT TOP ONE (08:45)
--- NOTE | 2018-04-19 08:45 | CATHPROC ---
[employer] HIS Report Study Information Study Number Admission Scheduled Start Study Start [id number] Apr 13 2018 7:13PM 04/18/2018 Apr 19 2018 6:55AM [place] Service Cardiac Catheterization Admit Source Facility Department Emergency department [facility] - Review Engineer Physician and Clinical Staff Initial Caleb Franks Border Guard Jan Lane,GALE Recorder Maria G [place],RT(R) Scrub Taisha Marquis ,RT(R) X-Ray Parisa Zhu,RT(R) Procedures Performed Procedure Location (Site) Vessel Name Angiogram LV LV Ventricle Coronary Angiograms LCA Left Coronary Coronary Angiograms RCA Right Coronary L Heart Cath LV Gram-hand inj. LV LV Ventricle Wire insertion Radial (left) Radial Art. Equipment Time Journal Entry Audit Clerk Description Size Mfg Part Number Used/Scraped TRANSDUCER, TRUWAVE [id number] 07:01 GOMEZ GARZA * Used W/STOCKCOCK *[id number] 07:01 MALLINCKRODT SYRINGE, ANGIOMAT 150ML 150ML *[id number] Used 2SUB [id number] 07:01 PaperV BLANKET,WARM AIR CCL * Used *[id number] 07:01 PaperV PACK, CCL CUSTOM * Used *[id number] 07:01 PaperV SUPPORT, ARTERIAL ADULT 71019 *[id number] Used [id number] 07:01 [employer] PACER PEN, SKIN DUAL W/ RULER * Used *[id number] 08:05 MEDTRONIC JL 3.5 DXTERITY CATHETER FR 5 Used *[id number] PIG ANG 145 DXTERITY [id number] 08:17 MEDTRONIC FR 5 Used CATHETER *[id number] BAND, RADIAL COMPRESSION TR [id number] 08:30 [employer] MEDICAL 24CM Used SHORT 24 *[id number] 07:01 [employer] MEDICAL WIRE, EXCHANGE 260CM 3MMJ 260CM Used *[id number] 07:01 NAMIC MANIFOLD, 4 PORT * Used *[id number] 07:01 [employer]COMED OMNIPAQUE, 350 MG, 100ML 100ML [id number] Used 08:05 [employer]COMED OMNIPAQUE, 350 MG, 150ML 150ML [id number] Used 08:23 NYCOMED OMNIPAQUE, 350 MG, 50ML 50ML [id number] Used 07:01 [employer]er JELCO NEEDLE 4056 *[id number] Used CATHETER, FR5 OPTITORQUE [id number] 07:50 TERInSequent MEDICAL FR 5 Used RADIAL TIG 4.0 *[id number] SHEATH, FR6 TRANSRADIAL RM*[id number] 07:01 TERCapableBits FR 6 Used SLENDER 10CM *[id number] Equipment Model, Serial, Lot Number and Expiration Data Description Model Number Serial Number Lot Number Expiration Date PIG ANG 145 DXTERITY CATHETER [id number] 12-15-2019 History: Current Medications Medication Dosage/Unit Route Frequency Last Date/Time Taken LOVENOX Insulin Beta Sharda History: Allergies Allergy Reaction Sulfa (Sulfonamide Antibiotics) GI iodine Anaphylaxis metformin GI linagliptin History: Risk Factors Family History of Hypertension Dyslipidemia Previous SD Previous Heart Failure Premature CAD Yes Yes Yes No No Prior Valve Prior PCI Prior CABG Surgery No No No Cerebrovascular Peripheral Artery Chronic Lung On Dialysis Diabetes Diabetes Therapy Disease Disease Disease No No Yes Yes Yes Insulin History: Risk Factors Selection Items Current Smoker History: Stress Tests Stress or Imaging Studies Performed No Labs Hgb (g/dl) Hct (%) WBC (l/cumm) Platelets (thousands) 11.60-17.00 35.00-51.00 4.00-11.00 150.00-450.00 10.8 32.7 8.4 409 Glucose (mg/dl) BUN (mg/dl) Creatinine (mg/dl) BUN:Creatinine (1:x) 74.00-106.00 7.00-18.00 0.50-1.30 10.00-20.00 385 14 0.9 15.6 Na (meq/l) K (meq/l) 136.00-145.00 3.50-5.10 135 4.8 CPK-MB (ng/ML) 0.50-3.60 Not Drawn Medication Medication Total Dose (Bolus/Oral) Medication Total Dosage/Unit 1% XYLOCAINE 20 mL BENADRYL 50 mg FENTANYL 50 mcg RADIAL COCKTAIL 5 mL (Bolus) SOLU-MEDROL 125 mg VERSED 2 mg Medications (Bolus/Oral) Medication Time Given Dosage/Unit Administered By Reason BENADRYL 04/19/2018 7:34:[address] 50 mg BENADRYL given in lab by Jna Lane, RN via Peripheral IV. SOLU-MEDROL 04/19/2018 7:35:[address] 125 mg SOLU-MEDROL given in lab by Jan Lane RN via Peripheral IV. 1% XYLOCAINE 04/19/2018 7:47:51 AM 20 mL Caleb Fraga 20 mL 1% XYLOCAINE given in lab by Caleb Fraga in Left Radial via Subcutaneous. VERSED 04/19/2018 7:48:[address] 1 mg VERSED given in lab by Jan Lane RN via Peripheral IV. Ntg 200mcg Verapamil 2.5mg Heparin RADIAL COCKTAIL 04/19/2018 7:54:03 AM 5 mL (Bolus) Caleb Fraga 2500U 5 mL (Bolus) RADIAL COCKTAIL given in lab by Caleb Fraga via Radial. Using [Solution Name]. Reason: Ntg 200mcg Verapamil 2.5mg Heparin 2500U. FENTANYL 04/19/2018 7:56:[address] 50 mcg FENTANYL given in lab by Jan Lane RN in Left Arm via Peripheral IV. Ordered by Desirae Fraga. VERSED 04/19/2018 7:58:[address] 1 mg VERSED given in lab by Jan Lane RN in Left Arm via Peripheral IV. Ordered by Caleb Fraga . Medication (Drip) Medication Time Given Dosage/Unit Concentration/Unit Diluent (ml) Solution IV Solutions 04/19/2018 7:21:11 AM 0 mL (IV) NaCl .9 IV Solutions given in lab by Jan Lane RN in Left Arm via Peripheral IV. Pump/Drip Flow = 20 ml/ hr using NaCl .9. Initial Case Assessment Cardiovascular HR Rhythm NIBP Chest Pain 85 reg 98/75 0 Edema Present Skin color Skin None Normal Warm Circulatory - Left Pulses Circulatory - Lower Extremities Color Lower Right Color Lower Left Normal Normal Neurological State Oriented to time-place- Alert Moves all extremities person Respiration - General Respiration Rate SpO2 (%) O2 (lpm) (B/min) 13 99 0 Chronological Log Time Study Chronological Log 7:17:30 Patient arrived via Bed. 7:17:50 Patient Name, D.O.B, / Armband Verified By R.N. 7:20:23 Consent signed by the physician and the patient and verified by the Review Engineer staff. 7:20:25 Pre-op and post- op instructions given; patient acknowledges understanding of instructions. 7:20:26 Verbal Stimulation=2 Physical Stimulation=2 Airway=2 Respiration=2 TOTAL=8. (0=absent, 1=crowley ited, 2=present) 7:21:00 Allens test performed on the left radial and ulnar artery. 7:21:05 Patient has been NPO for More than 6Hrs. 7:21:06 Skin Breakdown-bilat LE wounds 7:21:07 Sonya Prominences Protected 7:21:11 A # 20 IV was noted in the Upper Arm (left). Grade = 0 7:21:11 IV Solutions given in lab by Jan Lane, RN in Left Arm via Peripheral IV. Pump/Drip Flow = 20 ml/hr using NaCl .9. 7:21:13 History and physical on the chart or being dictated. 7:24:45 Reference ECG taken Vitals capture started with the following parameters, Patient=Adult, Interval=5 min, Initial Pre pphre=209 mmHg, 7:24:48 Deflation Rate=5 mmHg, Cuff placed on Left Arm 7:25:24 HR=85 bpm, IZMM=897/66 mmhg, SpO2=96.0 %, Resp=9 B/min 7:30:15 HR=85 bpm, NIBP=98/75 mmhg, SpO2=98 %, Resp=26 B/min, Pain=0, [place]=10, [place]=2 7:31:12 pt complaining of back pain....cant keep legs straight Assessment: Initial Case, HR=85 BPM, Rhythm=reg, NIBP=98/75 mmhg, Chest Pain=0, Edema=None, [place] r=Normal, Skin = Warm Left Pulses: Radial=2 7:31:23 Lower Right Extremities: Color=Normal Lower Left Extremities: Color=Normal Neurological: State=Alert, Ox3, TELLEZ Respiration: Resp=13 B/min, SpO2=99 %, O2=0 lpm 7:32:49 MD paged 7:32:54 Left Radial prepped with 2% chlorhexidine, and draped after a 3 min. waiting time. 7:34:26 50 mg BENADRYL given in lab by Jan Lane, RN via Peripheral IV. 7:35:20 HR=84 bpm, QLPO=682/59 mmhg, SpO2=97.0 %, Resp=12 B/min, Pain=0, [place]=10, [place]=2 7:35:29 blood glucose 385 at 0711. 9 units of novolog was given 7:35:52 125 mg SOLU-MEDROL given in lab by Jan Lane RN via Peripheral IV. 7:40:19 HR=80 bpm, NIBP=92/64 mmhg, SpO2=99 %, Resp=16 B/min, Pain=0, [place]=10, [place]=2 7:41:03 Pressure channel 1 zeroed. 7:41:18 MD arrived. 7:43:10 Pressure channel 1 zeroed. 7:45:18 HR=79 bpm, SNIV=709/57 mmhg, SpO2=95 %, Resp=15 B/min, Pain=0, [place]=10, [place]=2 7:47:38 Case Start 7:47:40 Verbal Stimulation=2 Physical Stimulation=2 Airway=2 Respiration=2 TOTAL=8. (0=absent, 1=crowley ited, 2=present) 7:47:51 20 mL 1% XYLOCAINE given in lab by Caleb Fraga in Left Radial via Subcutaneous. Time Out. Correct patient, correct procedure, correct physician, labs, allergies, and equipment verified with cathode builder 7:47:53 team present. Fire risk assesment completed (see hard stop sheet for coding). Time Out Concu rred by and individual staff in procedure. 7:48:55 1 mg VERSED given in lab by Jan Lane RN via Peripheral IV. 7:50:19 HR=80 bpm, NIBP=92/60 mmhg, SpO2=98 %, Resp=13 B/min, Pain=0, [place]=10, [place]=2 7:53:25 Access site was Radial Artery.left 7:53:38 A wire was inserted via Radial (left). A SHEATH, FR6 TRANSRADIAL SLENDER 10CM FR 6 was advanced into the Radial (left) using the Sachin antonio 7:53:51 technique. 5 mL (Bolus) RADIAL COCKTAIL given in lab by Caleb Fraga via Radial. Using [Solution Name]. Re ason: Ntg 200mcg 7:54:03 Verapamil 2.5mg Heparin 2500U. 7:55:20 HR=79 bpm, NIBP=77/49 mmhg, SpO2=98 %, Resp=12 B/min, Pain=0, [place]=10, [place]=2 7:56:00 50 mcg FENTANYL given in lab by Jan Lane RN in Left Arm via Peripheral IV. Ordered by Caleb Fraga. 7:58:22 1 mg VERSED given in lab by Jan Lane RN in Left Arm via Peripheral IV. Ordered by Caleb Thapa. A CATHETER, FR5 OPTITORQUE RADIAL TIG 4.0 FR 5 was advanced over a wire. OMNIPAQUE, 350 MG, 100M L 100ML 7:59:05 was used for injections. 8:00:19 HR=81 bpm, NIBP=68/43 mmhg, Resp=13 B/min, Pain=0, [place]=10, [place]=2 Recorded Pressure: Ao, HR=77, Condition=Condition 1 8:01:35 (Aorta) Ao 148/52/89 8:03:05 HR=76 bpm, XGCC=690/80 mmhg, SpO2=97 %, Resp=9 B/min 8:04:10 The RCA was injected and visualized at various angles. OMNIPAQUE, 350 MG, 150ML 150ML used. 8:05:14 HR=78 bpm, NIBP=81/52 mmhg, Resp=13 B/min Recorded Pressure: LV, HR=74, Condition=Condition 1 8:06:11 (Left Ventricle) LV 167/9/17 8:07:06 The LV was manually injected with 8 cc's and visualized. OMNIPAQUE, 350 MG, 150ML 150ML used . Recorded Pressure: LV, Ao, HR=73, Condition=Condition 1 8:07:54 (Left Ventricle) LV 167/10/19, (Aorta) Ao 164/51/94 8:10:17 HR=73 bpm, NIBP=94/57 mmhg, Resp=15 B/min After removing the current catheter a JL 3.5 DXTERITY CATHETER FR 5 was advanced over a WIRE, EX CHANGE 260CM 8:11:25 3MMJ 260CM. 8:11:34 The LCA was injected and visualized at various angles. OMNIPAQUE, 350 MG, 150ML 150ML used. Recorded Pressure: Ao, Ao, HR=68, Condition=Condition 1 8:12:47 (Aorta) Ao 99/40/60, (Aorta) Ao 116/49/74 8:15:20 HR=74 bpm, NIBP=96/59 mmhg, XpA2=868.0 %, Resp=12 B/min After removing the current catheter a PIG ANG 145 DXTERITY CATHETER FR 5 was advanced over a WIR E, EXCHANGE 8:18:07 260CM 3MMJ 260CM. 8:20:24 HR=74 bpm, NIBP=95/49 mmhg, SpO2=99.0 %, Resp=15 B/min 8:23:09 The LV was injected at 8 cc/sec for a total of 30. OMNIPAQUE, 350 MG, 50ML 50ML used. 8:23:57 Catheter was removed 8:24:10 Case End (Physician broke scrub) 8:25:23 HR=81 bpm, NIBP=90/48 mmhg, UeA3=115 %, Resp=13 B/min Radial Compression Device Used. 10 mLs of air placed in BAND, RADIAL COMPRESSION TR SHORT 24 24C M. Affected 8:29:48 hand ~O2 SATURATION~ % O2 saturation. 8:29:59 No case complications noted. 8:30:00 Cine recording checked. 8:30:04 Holding Area notified. 8:30:11 A Left Heart Cath was performed. 8:30:20 HR=78 bpm, NIBP=91/59 mmhg, Resp=7 B/min 8:35:[address] [facility] End Study - Contrast Media Used In Study Contrast Total Opened (mL) Total Used (mL) Total Wasted (mL) Omnipaque 80 80 0 End Study - Maximum Contrast Load Max Contrast Load (mL) 345.5 End Study - Radiation Exposure Fluoro Time (minutes) 11.0 End Study - Patient Disposition Complications Transferred To Interventional Outcome No Telemetry Bed No attempt made
--- NOTE | 2018-04-19 08:57 | MA ---
cc: Caleb Fraga MD DATE: 04/19/2018 BRIEF HISTORY: Nallely Gonzales is a 72-year-old female who has a history of smoking, hypertension, diabetes and hyperlipidemia with extremely severe vascular disease. She only has a pulse in one limb, which is her left arm. She has critical disease of her legs in need of major vascular surgery. She is having class 3 angina. For this reason, cardiac catheterization was performed. PROCEDURE PERFORMED: Left radial arterial access left heart catheterization, left ventriculography, coronary angiography. COMPLICATIONS: None. DESCRIPTION OF PROCEDURE: The patient was brought to the cardiac catheterization lab in the fasting state. Using 1 percent lidocaine for local anesthesia, a Terumo slender sheath was easily inserted in the left radial artery. A Padroni catheter was then used to image the right coronary artery. A left 3.5 Grecia was used to image her left coronary artery. She had significant pressure damping during injections of the left main. An angled pigtail catheter was then used to do a left ventriculography and a pullback. FINDINGS: HEMODYNAMICS: Left ventricular pressure was 167/9 with an end diastolic pressure of 17. Aortic pressure is 164/51 with a mean of 94. There was no gradient during pullback. LEFT VENTRICULOGRAPHY: Left ventriculography shows a fairly large akinetic posterobasal segment. Ejection fraction is mildly impaired estimated to be about 45%. CORONARY ANGIOGRAPHY: The left main coronary artery has ostial disease of at least 50% with pressure damping with a 5-Gu[place]ian catheter. It bifurcates into the LAD and circumflex vessels. The LAD has about 20% irregularities proximally. It gives off a first diagonal branch, which has diffuse 70% disease. The next branch giving off courses initially like a septal, but ends up almost like a marginal type branch. It has diffuse disease. The mid LAD after these 2 branches then has 80 percent stenosis and then diffuse 70-80 percent stenosis [address] the way down to the apex. The circumflex artery has about 60 percent ostial disease. The first obtuse marginal branch is occluded in a stump like fashion with only faint collaterals. Continuation of the circuit distally is diffusely diseased at least 70 percent throughout. The right coronary artery is totally occluded proximally. There is some faint siiud-ih-vfjgx collaterals and fairly good left to right collaterals. CONCLUSIONS: 1. 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 2. Severe diffuse coronary artery disease. On my review of the films, I do not think she is a candidate for any type of coronary revascularization, but will obtain a cardiothoracic surgical consult. Doing a 4-hour vascular operation on her legs is going to be high risk. MD OMAR Singh/MISTY , 08:40 AM , 08:56 AM
[2018-04-19] MEDS ORDERED: IOHEXOL 350 MG/ML 100 ML BTL (for Cath Lab) OTHER ONE (09:33)
[2018-04-19] MEDS: TRIAMTERENE/HCTZ 37.5 MG/25 MG TAB PO SCH (09:37)
[2018-04-19] MEDS: METOPROLOL TARTRATE 25 MG TAB PO SCH ×2 (09:37→21:00)
[2018-04-19] MEDS: MUPIROCIN 2% CREAM 15 GM TOPICAL SCH ×2 (09:38→21:00)
[2018-04-19] MEDS: COLLAGENASE OINT 30 GM TUBE TOPICAL SCH (09:38)
[2018-04-19] MEDS: DOCUSATE SODIUM 50 MG/SENNA 8.6 MG TAB PO SCH ×2 (09:42→21:00)
--- NOTE | 2018-04-19 09:58 | ECHRPT ---
Indication: CORONARY ATHEROSCLEROSIS CONCLUSIONS Normal left ventricular size. Wall thickness is normal. The left ventricular estimated ejection fraction is with inferoposterior hypokinesis. The interatrial septum not well visualized. The aortic root and proximal ascending aorta are not well visualized. Dgdv-ig-sxmvvzmp mitral valve regurgitation. Aortic valve sclerosis is present. There is trace tricuspid valve regurgitation. BP: 104 / 57 HR: 87 Rhythm: Sinus MEASUREMENTS (Male / Female) Normal Values Technical Quality:Fair 2D ECHO LV Diastolic Diameter PLAX 4.4 cm 4.2 - 5.9 / 3.9 - 5.3 cm LV Systolic Diameter PLAX 3.0 cm IVS Diastolic Thickness 1.0 cm 0.6 - 1.0 / 0.6 - 0.9 cm LVPW Diastolic Thickness 1.0 cm 0.6 - 1.0 / 0.6 - 0.9 cm LV Relative Wall Thickness 0.4 RV Internal Dim ED PLAX 2.0 cm LVOT Diameter 1.6 cm Aortic Root Diameter 2.1 cm LA Systolic Diameter LX 3.1 cm 3.0 - 4.0 / 2.7 - 3.8 cm M-MODE AV Cusp Separation MM 1.9 cm DOPPLER AV Peak Velocity 132.0 cm/s AV Peak Gradient 7.0 mmHg AV Mean Gradient 4.0 mmHg AV Velocity Time Integral 21.9 cm LVOT Peak Velocity 89.3 cm/s LVOT Peak Gradient 3.2 mmHg LVOT Velocity Time Integral 15.2 cm AV Area Cont Eq vti 1.4 cm AV Area Cont Eq pk 1.4 cm Mitral E Point Velocity 108.0 cm/s Mitral A Point Velocity 140.0 cm/s Mitral E to A Ratio 0.8 LV E' Lateral Velocity 6.3 cm/s Mitral E to LV E' Lateral Ratio 17.0 LV E' Septal Velocity 7.2 cm/s Mitral E to LV E' Septal Ratio 15.0 TR Peak Velocity 195.0 cm/s TR Peak Gradient 15.2 mmHg Right Atrial Pressure 10.0 mmHg Pulmonary Artery Systolic Pressu 25.2 mmHg Right Ventricular Systolic Press 25.2 mmHg PV Peak Velocity 122.0 cm/s PV Peak Gradient 6.0 mmHg FINDINGS LEFT VENTRICLE Normal left ventricular size. Wall thickness is normal. The left ventricular estimated ejection fraction is with inferoposterior hypokinesis.. RIGHT VENTRICLE Normal right ventricular size and systolic function. LEFT ATRIUM The left atrial size is normal. RIGHT ATRIUM The right atrial size is normal. ATRIAL SEPTUM The interatrial septum not well visualized. AORTA The aortic root and proximal ascending aorta are not well visualized. MITRAL VALVE Daim-xg-qxbazrod mitral valve regurgitation. AORTIC VALVE Aortic valve sclerosis is present. TRICUSPID VALVE There is trace tricuspid valve regurgitation. PULMONARY VALVE No pulmonary valve regurgitation or stenosis. VESSELS The inferior vena cava is normal in size. PERICARDIUM No pericardial effusion. Caleb Fraga MD (Electronically Signed) Final Date:19 April 2018 09:57
[2018-04-19 10:08] LABS: RPR SCREEN FOR REFLEX NON-REACTIVE (NON-REACTVE)
--- NOTE | 2018-04-19 15:58 | HHI.PR ---
Subjective Remarks Patient states had left-sided chest pain earlier today but that has resolved. Denies fevers or chills. Blood pressure noted to be on the low 90s with a map of 68. Patient asymptomatic. Patient states her blood sugars are very elevated. Objective Vitals Vital Signs Date Time Temp Pulse Resp B/P (MAP) Pulse Ox O2 Delivery O2 Flow Rate FiO2 04/19/18 13:45 97.8 78 17 91/57 (68) 97 04/19/18 13:45 78 04/19/18 08:41 97 Room Air 04/19/18 06:00 97.6 80 17 122/82 (95) 97 04/19/18 03:45 71 04/19/18 02:39 75 04/18/18 21:10 97.8 90 19 118/87 (97) 98 04/18/18 16:01 98.5 87 20 104/57 (73) 98 I/O 04/18/18 04/18/18 04/18/18 04/19/18 04/19/18 04/19/18 07:00 15:00 23:00 07:00 15:00 23:00 Intake Total 360 ml 900 ml 1050 ml Balance 360 ml 900 ml 1050 ml Intake Oral 360 ml 900 ml 1050 ml # Voids 1 4 5 # Bowel Movements 0 0 Result Diagram: 04/19/18 0530 04/19/18 0530 Imaging Last Impressions Chest X-Ray 04/18/18 0000 Signed Impressions: CONCLUSION: No acute cardiopulmonary disease. Carotid Artery Ultrasound 04/18/18 0000 Signed Impressions: CONCLUSION: No evidence for hemodynamically significant stenosis. Renal Ultrasound 04/16/18 0000 Signed Impressions: CONCLUSION: 1. Complex partially solid partially cystic 1.9 cm lesion in the mid to upper pole right kidney correlating with recent CT abnormality. This is indeterminate for neoplasm. Recommend further evaluation with MRI. Aorta w/Runoff CTA 04/15/18 1000 Signed Impressions: OTHER STRUCTURES: There is a 2 cm area of vague poor enhancement involving the lateral upper pole the right kidney. This is not consistent with a cyst. A few scattered colonic diverticuli without acute inflammation. CONCLUSION: 1. Significant inflow disease bilaterally as detailed above. 2. Occluded SFAs bilaterally with reconstitution of the [id number]-fmh-[id number] poplite al arteries. Three-vessel runoff to both feet. 3. 2 cm area of poor enhancement involving the lateral upper pole of the right kidney concerning for a mass. Consider MRI to further assess. Extremity Arterial Study 04/13/18 0000 Signed Impressions: CONCLUSION: Critical PAD bilaterally. Objective Remarks AAOx3 Clear lungs BL S1S2 RRR abdomen soft, nt, nd Bilateral lower extremity wounds draining foul-smelling, purulent material. Lower extremities with erythema and edema. Bilateral upper extremities with honey crusted lesions and mild erythema but no warmth. Neck also has some honey crusted lesions as well. Procedures Status post cardiac catheterization on 04/19 with findings of severe CAD A/P Problem List: (1) Sepsis ICD Code: A41.9 - Sepsis, unspecified organism Status: Acute (2) UTI (urinary tract infection) ICD Code: N39.0 - Urinary tract infection, site not specified Status: Acute (3) Bilateral lower leg cellulitis ICD Code: L03.116 - Cellulitis of left lower limb; L03.115 - Cellulitis of right lower limb Status: Acute (4) Diabetes ICD Code: E11.9 - Type 2 diabetes mellitus without complications (5) HTN (hypertension) ICD Code: I10 - Essential (primary) hypertension (6) Hyperlipidemia ICD Code: E78.5 - Hyperlipidemia, unspecified (7) Hypothyroidism ICD Code: E03.9 - Hypothyroidism, unspecified Status: Chronic (8) CAD (coronary artery disease) ICD Code: I25.10 - Atherosclerotic heart disease of stebbins coronary artery without angina pectoris Assessment and Plan (1) Sepsis Plan: Sepsis present on admission patient with leukocytosis, heart rate more than 90 with the source being the lower extremities. Sepsis secondary likely to cellulitis and urinary tract infection. Continue IV antibiotics -currently on IV vancomycin IV Zosyn. Sepsis clinically improving. Monitor CBC ID consulted -pending recommendations. 04/19 sepsis has resolved. Continue gentle IV fluids given lower blood pressures. Appreciate ID consultation recommendations. Antibiotics as per ID. Wound cultures growing MSSA and gram-negative rods. Continue IV vancomycin IV Zosyn as per ID recommendations. (2) UTI (urinary tract infection) Plan: Continue IV antibiotics as above. Urine culture growing E. coli. (3) Bilateral lower leg cellulitis/infected bilateral lower extremity wounds with MSSA. Plan: IV antibiotics as above. Podiatry consulted, recommended conservative management with wound care and vascular surgery consultation. Vascular surgery consulted. I discussed the case with Dr. Billy. The patient has vascular occlusive changes with a small vessel disease of both legs and as such resulting in necrotic areas of the skin in a specific muscle tone. CTA however reveals very diminutive sized vessels in the inflow area based on this the patient is not a candidate of any type of surgery or any type of reconstruction. Given the distribution of rash in the upper extremities, neck and lower extremities. Vasculitis need to be taken into account differential diagnosis. I will check ROBE, hepatitis profile, CRP, sedimentation rate, complement C3 and C4, antineutrophil cytoplasmic antibodies, cryoglobulins to rule out vasculitis. I will also order a Lyme disease PCR, RPR, Lyme basement debridement antibodies, serum protein electrophoresis. Consult infectious disease, will order wound culture. 04/19 patient with elevated sed rate and CRP. Vasculitis suspected. Patient started on IV Solu-Medrol, rash in upper extremity seems to be improving. Will DC IV Solu-Medrol and start the patient on prednisone 60 mg p.o. daily. Vasculitis workup shows a normal hepatitis profile, normal C3 and C4. Other immunologic tests are pending. RPR is nonreactive. Lyme disease DNA PCR pending. (4) Diabetes ICD Code: E11.9 - Type 2 diabetes mellitus without complications Plan: Blood sugar severely elevated in the 200s range. Continue SSI with insulin NovoLog and resume home insulin. Check hemoglobin A1c and lipid profile if not previously done. 04/18 patient's blood sugar still severely elevated in the 200s range. Given the patient will be started on IV steroids, I will increase the sliding scale to high dose and start the patient on insulin Levemir 10 units subcu twice daily. 04/19 blood sugars are severely elevated in the 300s. I will place on a basal bolus therapy with insulin Levemir and insulin NovoLog before meals. Increase Levemir to 12 units subcutaneously twice a day and placed on 7 units of cutaneously 3 times daily PC of NovoLog insulin. Continue SSI with insulin NovoLog which I will increased from the low scale to the medium scale. (5) HTN (hypertension)n Plan: Blood pressure seems to be stable. Continue triamterene/ hydrochlorothiazide. 04/19 blood pressure on the lower side. I will give at 250 mL IV normal saline bolus. Continue to monitor vital signs. Will consider holding beta alfredo if blood pressure continues to be low. (6) Hyperlipidemia Plan: Not on any medications. We will check lipid profile. If there is no contraindication will start on statin therapy in a.m. 04/19 lipid profile shows a normal cholesterol and LDL of 61. Given the patient has diabetes and severe peripheral vascular disease I will start the patient on a statin. (7) Hypothyroidism Plan: Continue levothyroxine. Check TSH if not previously done. 04/19 TSH low at 0.155, free T4 and free T3 within normal range. Likely euthyroid sick syndrome. No further management recommended. (8) CAD (coronary artery disease) ICD Code: I25.10 - Atherosclerotic heart disease of stebbins coronary artery without angina pectoris Plan: Patient complaining of chest tightness at night. Neurology consulted. Case was discussed with Dr. Caleb Fraga who recommends a carotid Dopplers, EKG , chest x-ray and cardiac catheterization. Patient was also started on beta- alfredo and a nitroglycerin patch. 04/19 chest x-ray reviewed by me without any acute cardiopulmonary disease. EKG reviewed by me shows a sinus rhythm with a ventricular rate of 97 bpm, ST depressions in anterolateral leads including V1, D2, aVF and ST depression in V4 , V5 and V6. Cardiology is following. The patient is status post cardiac catheterization with findings of severe CAD not amenable to stenting. Cardiothoracic surgery assaulted. ly. DVT prophylaxis: Lovenox subcutaneously. Discharge Planning Continue to monitor the medical floor. Problem Qualifiers (1) UTI (urinary tract infection): Qualified Codes: N30.00 - Acute cystitis without hematuria (2) Diabetes: Qualified Codes: E11.8 - Type 2 diabetes mellitus with unspecified complications; Z79.4 - MCFP (current) use of insulin (3) HTN (hypertension): Qualified Codes: I10 - Essential (primary) hypertension (4) Hyperlipidemia: Qualified Codes: E78.5 - Hyperlipidemia, unspecified (5) CAD (coronary artery disease): Qualified Codes: I25.118 - Atherosclerotic heart disease of stebbins coronary artery with other forms of angina pectoris Chandler Jackman MD Apr 19, 2018 15:58
[2018-04-19] MEDS: MORPHINE SULFATE 4 MG/ML INJ IV PUSH PRN ×2 (16:09→22:51)
--- NOTE | 2018-04-19 16:10 | PD.ID.CON ---
History of Present Illness Service ID Consult Requested By Dr Donnelly Reason for Consult sepsis, UTI, infected leg wounds Primary Care Physician No Primary Care Physician Diagnoses: History of Present Illness 72-year-old female with past medical history significant for diabetes, hypertension, hyperlipidemia, coronary artery disease, and peripheral vascular disease for bilateral lower extremity wounds and tobaccoism She developped persistent ulcerations on BLE, pain "pins and needles" Abx were tried, but wounds failed to heal Pt appartently defvelopped severe skin reaction to one of the new nmideication Pt also apparently developped gasngrenoius changes of L foot and she was admitted by manufacturing electrician for further treatment she was evaluated by Dr Azul and found not a candidate for any type of surgery or any type of reconstruction. She was cathed today diagnosed with severe 3 vessel disease and CV surgeon was consulted She also endorses having long standing disuria and on admission was diagnosed witrh UTI: UA with pyuria, urine clx + for E.coli Review of Systems Respiratory: COMPLAINS OF: Shortness of breath Cardiovascular: COMPLAINS OF: Lower Extremity Edema, Claudication Genitourinary: COMPLAINS OF: Dysuria Integumentary: COMPLAINS OF: Abnormal pigmentation, Rash Neurologic: COMPLAINS OF: Abnormal gait, Poor Balance Except as stated in HPI: all other systems reviewed are Neg Past Family Social History Allergies: Coded Allergies: Sulfa (Sulfonamide Antibiotics) (Verified Allergy, Severe, GI, 04/13/18) iodine (Verified Allergy, Severe, Anaphylaxis, 04/13/18) metformin (Verified Allergy, Severe, GI, 04/13/18) linagliptin (Verified Allergy, Intermediate, 04/13/18) Past Medical History diabetes mellitus, hypertension, hyperlipidemia, coronary artery disease and peripheral vascular disease Past Surgical History Ectopic Brain aneurysm clipping Ovarian cyst removal Tonsillectomy Active Ordered Medications Medications where reviewed in EMR Antibiotics Include: zosyn vancomycin Family History Father with diabetes mellitus. Mother with CHF. Social History Smokes 1 pack per day 60 years. Denies alcohol and illicit drugs. Physical Exam Vital Signs Vital Signs Date Time Temp Pulse Resp B/P (MAP) Pulse Ox O2 Delivery O2 Flow Rate FiO2 04/19/18 13:45 97.8 78 17 91/57 (68) 97 04/19/18 13:45 78 04/19/18 08:41 97 Room Air 04/19/18 06:00 97.6 80 17 122/82 (95) 97 04/19/18 03:45 71 04/19/18 02:39 75 04/18/18 21:10 97.8 90 19 118/87 (97) 98 04/18/18 16:01 98.5 87 20 104/57 (73) 98 Physical Exam CONSTITUTIONAL/GENERAL: This is an adequately nourished patient, in no apparent distress. TUBES/LINES/DRAINS: SKIN: No jaundice, rashes, Multiple dry crusted lesions on BUE lesions. Ecchymoses on upper extremities. No wounds seen anteriorly. Skin temperature appropriate. Not diaphoretic. HEAD: Atraumatic. Normocephalic. EYES: Pupils equal and round and reactive. Extraocular motions intact. No scleral icterus. No injection or drainage. Fundi not examined. ENT: Hearing grossly normal. Nose without bleeding or purulent drainage. Throat without visible erythema, exudates, masses, or lesions. Edentulous NECK: Trachea midline. Supple, nontender. No palpable thyroid enlargement or nodularity. CARDIOVASCULAR: Regular rate and rhythm hars systolic 4/6 murmur on aortic valve, no gallops, or rubs. No JVD. Peripheral pulses diminisjhed on BUE and abscesnt on BLE RESPIRATORY/CHEST: Symmetric, unlabored respirations. Clear to auscultation. Breath sounds equal bilaterally. No wheezes, rales, or rhonchi. GASTROINTESTINAL: Abdomen soft, non-tender, nondistended. No hepato-splenomegaly , or palpable masses. No guarding. Bowel sounds present. GENITOURINARY: Without palpable bladder distension. MUSCULOSKELETAL: Extremities without clubbing, cyanosis, BLE with tight edema and shallow ulcerations with necrosis Gangrenous toes Pulses non palpable No joint tenderness or effusion noted. No calf tenderness. No mottling or clubbing. LYMPHATICS: No palpable cervical or supraclavicular adenopathy. NEUROLOGICAL: Awake and alert. Motor and sensory grossly within normal limits. Follows commands. Cognitively sharp. Moves all extremities. PSYCHIATRIC: No obvious anxiety/depression. no apparent hallucinations or other psychotic thought process. Laboratory Laboratory Tests Test 04/18/18 20:11 04/19/18 05:30 Total Protein 7.0 Free Thyroxine 1.41 Free Triiodothyronine (T3) pg/dL 3.52 Rapid Plasma Reagin NON-REACTIVE White Blood Count 8.4 Red Blood Count 3.68 Hemoglobin 10.8 Hematocrit 32.7 Mean Corpuscular Volume 88.9 Mean Corpuscular Hemoglobin 29.4 Mean Corpuscular Hemoglobin Concent 33.1 Red Cell Distribution Width 13.2 Platelet Count 409 Mean Platelet Volume 7.2 Neutrophils (%) (Auto) 85.4 Lymphocytes (%) (Auto) 13.3 Monocytes (%) (Auto) 1.2 Eosinophils (%) (Auto) 0.0 Basophils (%) (Auto) 0.1 Neutrophils # (Auto) 7.1 Lymphocytes # (Auto) 1.1 Monocytes # (Auto) 0.1 Eosinophils # (Auto) 0.0 Basophils # (Auto) 0.0 CBC Comment DIFF FINAL Differential Comment Blood Urea Nitrogen 14 Creatinine 0.91 Random Glucose 369 Calcium Level 8.7 Sodium Level 135 Potassium Level 4.8 Chloride Level 100 Carbon Dioxide Level 24.0 Anion Gap 11 Estimat Glomerular Filtration Rate 61 Triglycerides Level 77 Cholesterol Level 122 LDL Cholesterol 61 HDL Cholesterol 45.4 Cholesterol/HDL Ratio 2.68 Date/Time Source Procedure Growth Status 04/13/18 17:45 Blood Peripheral Aerobic Blood Culture - Final NO GROWTH IN 5 DAYS Complete 04/13/18 17:45 Blood Peripheral Anaerobic Blood Culture - Final NO GROWTH IN 5 DAYS Complete 04/13/18 16:00 Urine Random Urine Urine Culture - Final Escherichia Coli Complete 04/17/18 23:42 Wound Leg Gram Stain - Final Resulted 04/17/18 23:42 Wound Culture - Preliminary Staphylococcus Aureus Gram Negative Michael Resulted Result Diagram: 04/19/18 0530 04/19/18 0530 Imaging Last Impressions Chest X-Ray 04/18/18 0000 Signed Impressions: CONCLUSION: No acute cardiopulmonary disease. Carotid Artery Ultrasound 04/18/18 0000 Signed Impressions: CONCLUSION: No evidence for hemodynamically significant stenosis. Renal Ultrasound 04/16/18 0000 Signed Impressions: CONCLUSION: 1. Complex partially solid partially cystic 1.9 cm lesion in the mid to upper pole right kidney correlating with recent CT abnormality. This is indeterminate for neoplasm. Recommend further evaluation with MRI. Aorta w/Runoff CTA 04/15/18 1000 Signed Impressions: OTHER STRUCTURES: There is a 2 cm area of vague poor enhancement involving the lateral upper pole the right kidney. This is not consistent with a cyst. A few scattered colonic diverticuli without acute inflammation. CONCLUSION: 1. Significant inflow disease bilaterally as detailed above. 2. Occluded SFAs bilaterally with reconstitution of the [id number]-[id number] poplite al arteries. Three-vessel runoff to both feet. 3. 2 cm area of poor enhancement involving the lateral upper pole of the right kidney concerning for a mass. Consider MRI to further assess. Extremity Arterial Study 04/13/18 0000 Signed Impressions: CONCLUSION: Critical PAD bilaterally. Assessment and Plan Assessment and Plan UTI, E.coli PVD plan for revasc severe CAD: will need CABG prior to revasc Infected BLE wounds with MSSA, GNBs cont zosyn, vanco fu clx untill final agree with plan to revasc since PVD is the main issue Dalia Alston MD Apr 19, 2018 15:50
[2018-04-19] MEDS ORDERED: GLUCAGON 1 MG/ML VIAL OTHER PRN (16:30)
[2018-04-19] MEDS ORDERED: DEXTROSE 50% IN WATER 50 ML VIAL(D50) IV PUSH PRN (16:30)
[2018-04-19] MEDS ORDERED: Vancomycin Consult Pharmacy 1 EA OTHER SCH (16:30)
[2018-04-19] MEDS: INSULIN ASPART 1,000 UNITS/10 ML VIAL SQ SCH (17:00)
--- NOTE | 2018-04-19 17:03 | PD.WCN.NOT ---
Wound Consult Additional Information: Attempted to follow up with patient earlier today, patient in OR will see patient tomorrow. Layla Friend [facility] Apr 19, 2018 17:03
[2018-04-19] MEDS ORDERED: VANCOMYCIN INJ 1,000 MG in SODIUM CHLOR 0.9% 250 ML INJ 250 ML IV ONE (18:00)
--- NOTE | 2018-04-19 18:48 | HHI.PR ---
Addendum to Inpatient Note Addendum Reason: Additional Documentation Additional Information Cath results explained. I don't think she is a candidate for coronary revascularization (CT surg consult pending). Prognosis poor, She told me she wants to go home tomorrow and is interested in hospice. Please add clopidogrel if no CABG planned. I will be OOT until Wednesday. Drs. Guerrero and Caleb available prn. Caleb Fraga MD Apr 19, 2018 18:48
[2018-04-19] MEDS: INSULIN DETEMIR 100 UNITS/ML VIAL SQ SCH (21:00)
[2018-04-19] MEDS: SODIUM CHLORIDE 0.9% FLUSH 10 ML FLUSH IV FLUSH SCH (21:00)
[2018-04-19 22:17] LABS: ALB/GLOB RATIO (SPE) 1.14 (1.39-2.23)
[2018-04-20] VITALS (15 sets, daily range): BP systolic 85–101; BP diastolic 45–66; PULSE 78–104; RESP 14–20; TEMP 97.8–98.7; O2SAT 98
[2018-04-20] MEDS: PIPERACIL-TAZO 3.375 GM PREMIX 50 ML IV SCH ×3 (00:15→12:19)
[2018-04-20] MEDS: NITROGLYCERIN 2% OINT 1 GM PACKET TOPICAL SCH (00:15)
[2018-04-20] MEDS: LEVOTHYROXINE SODIUM 25 MCG TAB PO SCH (05:53)
[2018-04-20] MEDS ORDERED: ISOSORBIDE MONONITRATE 30 MG CR TAB (IMDUR) PO SCH (07:00)
[2018-04-20 07:06] LABS: AUTOMATED NEUTROPHIL # 14.1 TH/MM3 (1.8-7.7); BASOPHIL # 0.1 TH/MM3 (0-0.2); BASOPHIL % 0.4 % (0.0-2.0); EOSINOPHIL % 0.1 % (0.0-4.0); HEMATOCRIT 30.3 % (35.0-46.0); HEMOGLOBIN 10.2 GM/DL (11.6-15.3); LYMPH % 16.1 % (9.0-44.0); LYMPHOCYTE # 2.9 TH/MM3 (1.0-4.8); MEAN CELL VOLUME 88.2 FL (80.0-100.0); MEAN CORPUSCULAR HEMOGLOBIN 29.7 PG (27.0-34.0); MEAN CORPUSCULAR HGB CONC 33.7 % (32.0-36.0); MEAN PLATELET VOLUME 7.3 FL (7.0-11.0); MONO % 5.2 % (0.0-8.0); MONOCYTE # 0.9 TH/MM3 (0-0.9); NEUT % 78.2 % (16.0-70.0); PLATELET COUNT 407 TH/MM3 (150-450); RED BLOOD COUNT 3.44 MIL/MM3 (4.00-5.30); RED CELL DISTRIBUTION WIDTH 13.7 % (11.6-17.2)
[2018-04-20 07:13] LABS: ALBUMIN 2.6 GM/DL (3.4-5.0); ALKALINE PHOSPHATASE 50 U/L (45-117); ALT (GPT) 34 U/L (10-53); AST (GOT) 72 U/L (15-37); BICARBONATE 24.2 MEQ/L (21.0-32.0); BLOOD UREA NITROGEN 20 MG/DL (7-18); CALCIUM 8.5 MG/DL (8.5-10.1); CHLORIDE 99 MEQ/L (98-107); GLOMERULAR FILTRATION RATE 70 ML/MIN (>89); GLUCOSE,RANDOM 279 MG/DL (74-106); MAGNESIUM 2.2 MG/DL (1.5-2.5); PHOSPHORUS 2.2 MG/DL (2.5-4.9); SODIUM (NA) 135 MEQ/L (136-145); TOTAL BILIRUBIN ADULT 0.2 MG/DL (0.2-1.0); TOTAL PROTEIN 6.3 GM/DL (6.4-8.2)
[2018-04-20] MEDS: INSULIN ASPART 1,000 UNITS/10 ML VIAL SQ SCH ×2 (08:00→12:00)
[2018-04-20] MEDS: INSULIN ASPART SUPPLEMENTAL SCALE SQ SCH ×2 (08:00→12:00)
[2018-04-20] MEDS ORDERED: POTASSIUM PHOSPHATE MONOBASIC 500 MG TAB PO ONE (08:30)
[2018-04-20] MEDS: DOCUSATE SODIUM 50 MG/SENNA 8.6 MG TAB PO SCH (09:00)
[2018-04-20] MEDS: INSULIN DETEMIR 100 UNITS/ML VIAL SQ SCH (09:00)
[2018-04-20] MEDS: MUPIROCIN 2% CREAM 15 GM TOPICAL SCH (09:00)
[2018-04-20] MEDS: SODIUM CHLORIDE 0.9% FLUSH 10 ML FLUSH IV FLUSH SCH (09:00)
[2018-04-20] MEDS ORDERED: ATORVASTATIN 10 MG TAB PO SCH (09:00)
[2018-04-20] MEDS ORDERED: predniSONE 20 MG TAB PO SCH (09:00)
[2018-04-20] MEDS: COLLAGENASE OINT 30 GM TUBE TOPICAL SCH (09:27)
[2018-04-20] MEDS: TRIAMTERENE/HCTZ 37.5 MG/25 MG TAB PO SCH (09:28)
[2018-04-20] MEDS: METOPROLOL TARTRATE 25 MG TAB PO SCH (09:29)
[2018-04-20] MEDS: MORPHINE SULFATE 4 MG/ML INJ IV PUSH PRN (09:30)
[2018-04-20] MEDS ORDERED: PRED10PA PO (10:49)
[2018-04-20] MEDS ORDERED: LACTTAB8 PO (10:49)
[2018-04-20] MEDS ORDERED: LIPI10TA PO (10:49)
[2018-04-20] MEDS ORDERED: LEVA500T33 PO (10:49)
[2018-04-20] MEDS ORDERED: HYDR-3516 PO (10:49)
[2018-04-20] MEDS ORDERED: METO25TA3 PO (10:49)
[2018-04-20] MEDS ORDERED: ISOS30TA3 PO (10:49)
[2018-04-20] MEDS ORDERED: CLOP75TA PO (10:50)
--- NOTE | 2018-04-20 10:54 | HHI.DS ---
Discharge Summary Admission Date Apr 13, 2018 at 19:13 Discharge Date: Apr 20, 2018 Admitting Diagnosis Sepsis/bilateral leg cellulitis/UTI (1) Sepsis ICD Code: A41.9 - Sepsis, unspecified organism Diagnosis: Principal Status: Acute (2) UTI (urinary tract infection) ICD Code: N39.0 - Urinary tract infection, site not specified Diagnosis: Principal Status: Acute (3) Bilateral lower leg cellulitis ICD Code: L03.116 - Cellulitis of left lower limb; L03.115 - Cellulitis of right lower limb Diagnosis: Principal Status: Acute (4) Diabetes ICD Code: E11.9 - Type 2 diabetes mellitus without complications Diagnosis: Secondary (5) HTN (hypertension) ICD Code: I10 - Essential (primary) hypertension Diagnosis: Secondary (6) Hyperlipidemia ICD Code: E78.5 - Hyperlipidemia, unspecified Diagnosis: Secondary (7) Hypothyroidism ICD Code: E03.9 - Hypothyroidism, unspecified Diagnosis: Secondary Status: Chronic (8) CAD (coronary artery disease) ICD Code: I25.10 - Atherosclerotic heart disease of k[place] coronary artery without angina pectoris Diagnosis: Principal Procedures Status post cardiac catheterization on 04/19 with findings of severe CAD Brief History - From Admission 72-year-old female with past medical history significant for diabetes mellitus, hypertension, hyperlipidemia, coronary artery disease and peripheral vascular disease presents the emergency department for evaluation of bilateral lower extremity wounds. The patient was sent over from her business consultant's office for further evaluation and IV antibiotics. The patient states she has had these bilateral lower extremity ulcerations on her shins and feet since November. She was seen in urgent care center where she was prescribed 10 days of doxycycline on 01/31/18. She reports no improvement in her symptoms despite compliance with the medication. She reports she has had subjective fevers and chills since November. The patient is a poor historian and states she has "blockages" in her bilateral lower extremities although she cannot tell me where or what testing she had done. She denies any chest pain or shortness of breath. No abdominal pain. No nausea/vomiting/diarrhea. No lateralizing signs/symptoms. CBC/BMP: 04/20/18 0533 04/20/18 0533 Significant Findings Laboratory Tests Test 04/17/18 19:05 04/18/18 13:04 04/18/18 20:11 04/19/18 05:30 Erythrocyte Sedimentation Rate 65 mm/hr (0-30) Hemoglobin A1c 8.4 % (4.3-6.0) C-Reactive Protein 2.50 MG/DL (0.00-0.30) Thyroid Stimulating Hormone 3rd Gen 0.155 uIU/ML (0.358-3.740) Red Blood Count 3.89 MIL/MM3 (4.00-5.30) 3.68 MIL/MM3 (4.00-5.30) Hematocrit 34.0 % (35.0-46.0) 32.7 % (35.0-46.0) Neutrophils (%) (Auto) 73.3 % (16.0-70.0) 85.4 % (16.0-70.0) Random Glucose 211 MG/DL (74-106) 369 MG/DL (74-106) Albumin 2.9 GM/DL (3.4-5.0) Phosphorus Level 1.8 MG/DL (2.5-4.9) Potassium Level 3.4 MEQ/L (3.5-5.1) Estimat Glomerular Filtration Rate 81 ML/MIN (>89) 61 ML/MIN (>89) HDL Cholesterol 38.3 MG/DL (40.0-60.0) Albumin/Globulin Ratio 1.14 (1.39-2.23) Xgnqn-2-Rvxdxuvwu 0.39 GM/DL (0.11-0.29) Ushwj-8-Pcdjsocfp 1.13 GM/DL (0.22-1.00) Hemoglobin 10.8 GM/DL (11.6-15.3) Sodium Level 135 MEQ/L (136-145) Test 04/20/18 05:33 White Blood Count 18.0 TH/MM3 (4.0-11.0) Red Blood Count 3.44 MIL/MM3 (4.00-5.30) Hemoglobin 10.2 GM/DL (11.6-15.3) Hematocrit 30.3 % (35.0-46.0) Neutrophils (%) (Auto) 78.2 % (16.0-70.0) Neutrophils # (Auto) 14.1 TH/MM3 (1.8-7.7) Blood Urea Nitrogen 20 MG/DL (7-18) Random Glucose 279 MG/DL (74-106) Total Protein 6.3 GM/DL (6.4-8.2) Albumin 2.6 GM/DL (3.4-5.0) Phosphorus Level 2.2 MG/DL (2.5-4.9) Aspartate Amino Transf (AST/SGOT) 72 U/L (15-37) Sodium Level 135 MEQ/L (136-145) Estimat Glomerular Filtration Rate 70 ML/MIN (>89) PE at Discharge AAOx3 Clear lungs BL S1S2 RRR abdomen soft, nt, nd Bilateral lower extremity wounds draining foul-smelling, purulent material. Lower extremities with erythema and edema. Bilateral upper extremities with honey crusted lesions and mild erythema but no warmth. Neck also has some honey crusted lesions as well. Hospital Course Mrs. Gonzales is a 72 year old female. She is admitted secondary to bilateral lower extremity cellulitis. This is thought to be related to severe vascular disease and may be a component of vasculitis. Vascular surgery is recommended and patient had a cardiac workup in regards to this. She is found to have non- distensible vessel disease. Cardiothoracic surgery for bypass is recommended as a treatment. Patient declines option for any bypass surgery. At this point she is also not interested in vascular surgery. Steroids are being provided for her vasculitis. Antibiotics are being provided for cellulitis. Patient wishes to discharged home with hospice. Hospice has been consulted. After meeting with hospice patient is medically clear for discharge to home. Pt Condition on Discharge: Guarded Discharge Disposition: Hospice/ Home Discharge Time: <= 30 minutes Discharge Instructions DIET: Follow Instructions for: Heart Healthy Diet Activities you can perform: Regular-No Restrictions Follow up Referrals: PCP Follow-up - 2 Weeks New Medications: Clopidogrel (Clopidogrel) 75 Mg Tab 75 MG PO DAILY for Blood Clot Prevention, #30 TAB 0 Refills Lactobacillus Acidophilus (Lactobacillus Acidophilus) 1 Billion Cell Tab 1 TAB PO TIDAC for Nutritional Supplement, #30 TAB 0 Refills Levofloxacin (Levaquin) 500 Mg Tablet 500 MG PO DAILY for Infection, #6 TAB 0 Refills Prednisone (21) 10 mg tab Dose Pack (Prednisone (21) 10 mg tab Dose Pack) 10 Mg Pack 10 MG PO DIRECTED for Inflammation, #1 DSPK 0 Refills Atorvastatin (Lipitor) 10 Mg Tab 10 MG PO DAILY for Cholesterol Management, #30 TAB Hydrocodone/Acetaminophen (Hydrocodone-Acetamin 5-325 mg) 5 Mg-325 Mg Tablet 1 TAB PO Q6H PRN for Pain, #20 TAB Isosorbide Mononitrate ER (Isosorbide Mononitrate ER) 30 Mg Dianna 30 MG PO DAILY@07 for Chest Pain, #30 TAB Metoprolol Tartrate (Metoprolol Tartrate) 25 Mg Tab 12.5 MG PO Q12HR for Blood Pressure Management, #60 TAB Continued Medications: Aspirin (Aspirin Low Dose) 81 Mg Chew 162 MG CHEW DAILY, TAB 0 Refills Glipizide (Glipizide) 5 Mg Tab 5 MG PO BIDAC for Blood Sugar Management, #60 TAB 0 Refills Take 30 minutes before a meal Ibuprofen (Ibuprofen) 200 Mg Cap 200 MG PO Q6H PRN for PAIN SCALE 1 TO 10, CAP 0 Refills Insulin Degludec Inj (Tresiba Flextouch Pen Inj) 300 unit/3 ML Pen 15 UNITS SQ HS for Blood Sugar Management, #15 ML 0 Refills Levothyroxine (Synthroid) 25 Mcg Tab 25 MCG PO DAILY for Thyroid, #30 TAB 0 Refills Triamterene-Hydrochlorothiazide (Triamterene-Hydrochlorothiazide) 37.5-25 Mg Tab 1 TAB DAILY, #30 TAB 0 Refills Rian Shrestha MD Apr 20, 2018 10:54
[2018-04-20] MEDS: VANCOMYCIN 1,000 MG/NS 250 ML IV SCH ×4 (12:00→12:18)
--- NOTE | 2018-04-20 15:02 | PD.WCN.NOT ---
Wound Consult Description: Received consult from Doctor Al for BLE wound management Communicated with: GALE Jarquin, franklyn all placed to Doctor Al podiatry for orders Recommendation: Please cleanse diffuse wounds to BLE with wound cleanser or normal saline and gently dry. Apply stoma powder to BLE and wipe off then spray BLE with Cavilon skin barrier film, skin prep and let dry repeat process one time to encrust legs and protect periwound skin from moisture. Apply Optilock dressings secured with SARAH wrap or rolled gauze. Change dressing every 7 days or as needed for saturation or dislodgement. Additional Information: Patient seen earlier on [facility] for wound management of BLE. Doctor al recommends triple layer compression . 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 Spoke with Doctor Al on 04/18/2018 , Doctor gave telephone order for Optifoam AG gentle to be applied to patient with soft cast padding to secure dressing. Patient had these applied by RN on floor, due to patient being in procedure and then going to OR on 04/19. Patient unable to tolerate these dressing. Patient was sitting in recliner with legs in dependent position. Patient complains of severe pain with BLE elevation. Removed saturated gauze and rolled gauze dressings in place to reveal diffuse small draining wounds to bilateral shins. Wounds are noted with 100% coverage of yellow slough, that is moist. Periwound skin is denuded and macerated from excess drainage. Larger wounds are noted to R medial ankle and lateral calf. Wound to R lateral calf measures ~4cm x ~2 cm x ~0.4cm. Wound has punched out appearance with steep wound margins. Wound bed presents with 80% yellow slough, ~10% pink tissue and ~10% facia. Wound drainage is heavy and serous.R medial ankle wound presents with ~90% yellow slough and ~10% pink tissue. Wound is also noted with heavy serous drainage. BLE wounds were cleansed with wound cleanser and patted dry. Applied stoma powder to BLE and wiped off excess before spraying BLE with cavilon skin barrier film, repeating process one time to encrust BLE periwounds and protect skin from heavy drainage. Then applied Two large Optilock dressings in place to to each leg with one small Optilock dressing each in place to medial R foot and Lateral left foot.Secured Large Optilock dressings with SARAH wrap and small Optilock dressings with rolled gauze and tape. Dressings can be left in place for up to 7 days or can be change PRN if saturated or dislodged. Layla Friend [facility] Apr 20, 2018 15:02
[2018-04-20] MEDS ORDERED: PHARMACY ORDERED LAB ONE (17:45)
[2018-04-21] MEDS ORDERED: PHARMACY ORDERED LAB ONE (23:45)
== END 2018-04-20 14:10 | disposition hospice, home (50) | DRG 872 ==
LOC: NEPC 15:08 → NEDA 19:13 → N05B 21:51 → HCIS 04-19 08:37
PROVIDERS: ADMIT Hospitalist; ATTEND Hospitalist
PROC: B41DYZZ Fluoroscopy of Aorta and Bilateral Lower Extremity Arteries using Other Contrast (ICD-10-PCS; 2018-04-15)
PROC: B2111ZZ Fluoroscopy of Multiple Coronary Arteries using Low Osmolar Contrast (ICD-10-PCS; 2018-04-19)
PROC: B2151ZZ Fluoroscopy of Left Heart using Low Osmolar Contrast (ICD-10-PCS; 2018-04-19)
PROC: 4A023N7 Measurement of Cardiac Sampling and Pressure, Left Heart, Percutaneous Approach (ICD-10-PCS; principal; 2018-04-19 07:30)
DX: A41.9 Sepsis, unspecified organism (principal); E11.51 Type 2 diabetes mellitus with diabetic peripheral angiopathy without gangrene; E11.621 Type 2 diabetes mellitus with foot ulcer; N39.0 Urinary tract infection, site not specified; L03.115 Cellulitis of right lower limb; L03.116 Cellulitis of left lower limb; E78.5 Hyperlipidemia, unspecified; I10 Essential (primary) hypertension; J44.9 Chronic obstructive pulmonary disease, unspecified; I25.118 Atherosclerotic heart disease of native coronary artery with other forms of angina pectoris; I25.82 Chronic total occlusion of coronary artery; I70.238 Atherosclerosis of native arteries of right leg with ulceration of other part of lower leg; I70.245 Atherosclerosis of native arteries of left leg with ulceration of other part of foot; I70.0 Atherosclerosis of aorta; N28.89 Other specified disorders of kidney and ureter; R21 Rash and other nonspecific skin eruption; E07.81 Sick-euthyroid syndrome; F17.210 Nicotine dependence, cigarettes, uncomplicated; B95.7 Other staphylococcus as the cause of diseases classified elsewhere; B96.20 Unspecified Escherichia coli [E. coli] as the cause of diseases classified elsewhere; Z51.5 Encounter for palliative care; Z79.4 Long term (current) use of insulin; Z82.49 Family history of ischemic heart disease and other diseases of the circulatory system; Z83.3 Family history of diabetes mellitus; Z88.2 Allergy status to sulfonamides; Z91.041 Radiographic dye allergy status
CPT/HCPCS: 71045; 75635; 76775; 80048; 80053; 80061; 80074; 80202; 81001; 82565; 82595; 82948; 83036; 83520; 83605; 83735; 84100; 84165; 84439; 84443; 84481; 85025; 85652; 86021; 86038; 86140; 86160; 86592; 87040; 87070; 87077; 87086; 87186; 87205; 87801; 93005; 93306; 93458; 93880; 93922; 96365; 96368; 99152; 99153; C1769; C1893; J1200; J1644; J1650; J1815; J2250; J2270; J2543; J2920; J2930; J3010; J3370; J7030; J7050; J7512; Q0163; Q9967